=== PATIENT | female | born 1965 | race Caucasian/White ===

== ENCOUNTER → 2017-09-09 08:22 | Outpatient (CLI) | payer OTHER, SELFPAY ==
--- NOTE | 2017-09-09 08:27 | HPBI_ITS ---
MAMMOGRAPHY - BILATERAL SCREENING REASON FOR EXAM: Female, 51 years old. Routine annual screening examination. PERTINENT HISTORY: Grandmother with breast cancer. Aunt with breast cancer. TECHNIQUE: Digital bilateral breast kaden (3D mammographic acquisition) in the CC and MLO projections. 2-D mediolateral oblique (MLO) and craniocaudad (CC) views of both breasts were obtained. CAD: Full Field Digital Mammography with Computer Added Detection was performed. COMPARISON: Comparison is made with prior outside examination dated August 18, 2016 and July 23, 2014. FINDINGS: Breast Composition: The breasts are heterogeneously dense, which may obscure small masses. There are no dominant masses or suspicious calcifications. A tissue clip marker is seen in the upper lateral portion of the left breast. A linear well-defined nodular density is seen. This is unchanged. No other significant abnormalities are identified. There has been no significant change since the prior study. HPBI/SCREENING MAMM (CAD), BILAT IMPRESSION: Stable bilateral screening mammogram. Yearly follow-up mammogram recommended. (A) ASSESSMENT CATEGORY: BIRADS Category 2: Benign. A letter regarding these results will be sent to the patient by the facility within 30 days. Approximately 10% of breast cancers are not detected by mammography. A normal mammogram should not delay biopsy of a clinically suspicious abnormality. [id number] Electronically Signed: Ozzy Mchugh MD at 13:05 EST Tel [phone], Service support ,
== END ==
PROVIDERS: Family Provider Internal Medicine; PCP Internal Medicine; Visit Provider Nurse Practitioner Women's Health
DX: Z12.31 Encounter for screening mammogram for malignant neoplasm of breast (principal)
CPT/HCPCS: 77063; 77067

== ENCOUNTER → 2017-11-09 10:52 | Outpatient (CLI) | payer OTHER, SELFPAY | PROVIDERS: Family Provider Internal Medicine; PCP Internal Medicine; Visit Provider Internal Medicine Cardiovascular Disease | DX: R00.1 Bradycardia, unspecified (principal) | CPT/HCPCS: 93225; 93226 ==

== ENCOUNTER 2017-12-16 12:24 | Emergency (ER) | payer OTHER, SELFPAY ==
[2017-12-16 12:25] VITALS: BP 144/78; PULSE 47; RESP 16; TEMP 36.6; O2SAT 98; BMI 32.1
[2017-12-16 12:38] VITALS: BP 126/76; PULSE 57; RESP 18; O2SAT 99
--- NOTE | 2017-12-16 13:01 | CT_ITS ---
STUDY: CT BRAIN WITHOUT CONTRAST REASON FOR EXAM: Female, 52 years old. Lightheadedness. Dizziness. RADIATION DOSAGE (If Supplied By Facility): CTDIvol = ( 60.81 ) mGy, DLP = ( 1044.28 ) mGycm TECHNIQUE: Transaxial CT imaging of the brain was performed without administration of intravenous contrast material. Individualized dose optimization techniques were used for this CT. COMPARISON: Comparison is made with prior study dated September 02, 2012. FINDINGS: Normal soft tissue structures. Normal calvarium. Normal size ventricles and extra-axial spaces for the patient's age. Normal white matter tracts of the cerebral hemispheres. Normal basal ganglia and thalami. Normal brainstem. Normal cerebellum. There is no intracranial hemorrhage. There are no findings of an acute ischemic infarction. Normal visualized paranasal sinuses. CT/Brain/Head without Contrast IMPRESSION: Normal unenhanced CT scan of the brain. Electronically Signed: Ozzy Mchugh MD at 13:52 EDT Tel [phone], Service support ,
--- NOTE | 2017-12-16 13:01 | EKG12_ITS ---
Test Reason : BRADYCARDIA Blood Pressure : / mmHG Vent. Rate : 048 BPM Atrial Rate : 048 BPM P-R Int : 146 ms QRS Dur : 088 ms QT Int : 436 ms P-R-T Axes : 003 -07 014 degrees QTc Int : 389 ms Sinus bradycardia Nonspecific T wave abnormality Abnormal ECG Confirmed by KARL MORFIN, BENOIT ([id number]), industrial editor JAYSON LI ([id number]) on 12/21/2017 1:40:30 PM Referred By: MARCIA Confirmed By:BENOIT BARAJAS MD
[2017-12-16 13:11] VITALS: BP 103/87; BP 117/65; BP 120/74; PULSE 46; PULSE 50; PULSE 60
[2017-12-16] MEDS: Meclizine HCl 25 MG Tablet PO (13:15)
[2017-12-16] MEDS: 0.9% Normal Saline 1,000 ML 150 ML IV (13:20)
[2017-12-16 13:30] LABS: Absolute Neutrophil Count 2.4 X10^3/uL (2.0-7.7); Basophil# 0.03 X10^3/uL; Basophil% 0.6 % (0-1); Eosinophil# 0.12 X10^3/uL; Eosinophils% 2.4 % (0-5); Hematocrit 37.9 % (37-47); Hemoglobin 12.5 g/dl (12.0-15.0); Lymphocyte % 40.7 % (19-41); Mean Corpuscular Hgb 29.5 pg (27.0-32.0); Mean Corpuscular Volume 89.4 fL (81-99); Mean Platelet Vol. 9.6 fl (6.2-12.0); Monocyte# 0.32 X10^3/uL; Monocyte% 6.5 % (0-10); Neutrophil # 2.44 X10^3/uL (2.7-7.7); Neutrophil % 49.8 % (47-70); Platelet Count 155 K/mm3 (150-450); RBC Distribution Width CV 12.8 % (11.6-14.6); RBC Distribution Width SD 41.6 fl (35.1-43.9); Red Blood Count 4.24 M/mm3 (4.2-5.4); White Blood Count 4.9 K/mm3 (4.4-11.0)
[2017-12-16 13:31] LABS: POSITIVE COUNT NO; POSITIVE DIFFERENTIAL NO; POSITIVE MORPHOLOGY NO
[2017-12-16 13:34] VITALS: BP 115/72; PULSE 46; RESP 16; O2SAT 99
[2017-12-16 13:47] LABS: Anion Gap 7 (5-15); BUN 20 mg/dL (7-18); BUN/Creat Ratio 24.3 RATIO (10-20); Calcium,Total 8.6 mg/dL (8.5-10.1); Chloride 110 mmol/L (98-107); Creatinine, Serum 0.82 mg/dL (0.55-1.02); EST Glomerular Filtration Rate 78 mL/min (>60); Est Glom Filt Rate - Afr Amer 94 mL/min (>60); Glucose 86 mg/dL (74-106); Potassium 4.1 mmol/L (3.5-5.1); Sodium Level 145 mmol/L (136-145)
[2017-12-16 14:00] VITALS: BP 114/65; PULSE 48; RESP 16; O2SAT 99
--- NOTE | 2017-12-16 14:40 | ED.VISSUMM ---
- ER Visit Summary Date of Service: 12/16/17 Chief Complaint: [Lightheadedness] History of Present Illness: The patient is a 52 F [presents to the emergency department complaint of not feeling well that started around 11 AM. 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 Patient states that she has a history of chronic bradycardia and her resting pulse is normally 48 to low 50s. Patient states she got up and started to walk around but that did not make her feel any better. Patient states that her lightheadedness is more pronounced with certain movements of her head such as looking down or looking up and closing her eyes. Patient denies any chest pain or shortness of breath. Patient denies any falls or head injuries. Patient denies recent illness. Patient has had similar episodes like this in the past. Patient denies any hearing loss or ringing in her ears.] Physical Examination: [HEENT-PERRLA, EOMI. Cranial nerves II through XII grossly intact. TMs clear. Mucous membranes moist. No adenopathy. Cardiovascular-regular rate and rhythm without murmur or ectopy Lungs-clear to auscultation, chest wall stable without crepitus or subcu emphysema Abdomen-normoactive bowel sounds, soft, nontender, no rebound or rigidity, no peritoneal signs. Neuro efpx-dopctd-jbyc and heel to cox testing within normal limits, negative Romberg, negative for drift, fundi benign. Patient was Hallpike and I could not reproduce any nystagmus although she was somewhat symptomatic with position changes. Extremities-intact ?4, normal range of motion, normal pulses, atraumatic] Test Results: [EKG obtained on arrival showed a sinus bradycardia with a ventricular rate of 48 bpm with some nonspecific ST changes. CBC with differential showed a white count of 4.9, hemoglobin 12, hematocrit 38, platelets 155. Chemistries were normal. Troponin was less than 0.015. T scan of the brain without contrast showed nothing acute.] Orthostatic vital signs were normal Emergency Department Course and Treatment: [Was treated with Antivert 25 mg p.o.] patient felt improved after treatment and was able to walk to the bathroom and back without difficulty. Treatment Plan: [Patient will be given a prescription for Antivert] Disposition: [Discharged home in stable condition] Impression: [Dizziness-suspect benign positional vertigo] This note was generated with [employer] dictation software. It may contain incorrect words, spelling, and punctuation that were not noted in review of the chart prior to signing ED Disposition - Plan for ED Patient: Chief Complaint: Dizziness Referrals: Lamont Herzog MD [Primary Care Provider] -
--- NOTE | 2017-12-16 14:43 | ED.DCSUM_ITS ---
- ER Visit Summary Date of Service: 12/16/17 Chief Complaint: [Lightheadedness] History of Present Illness: The patient is a 52 F [presents to the emergency department complaint of not feeling well that started around 11 AM. 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 Patient states that she has a history of chronic bradycardia and her resting pulse is normally 48 to low 50s. Patient states she got up and started to walk around but that did not make her feel any better. Patient states that her lightheadedness is more pronounced with certain movements of her head such as looking down or looking up and closing her eyes. Patient denies any chest pain or shortness of breath. Patient denies any falls or head injuries. Patient denies recent illness. Patient has had similar episodes like this in the past. Patient denies any hearing loss or ringing in her ears.] Physical Examination: [HEENT-PERRLA, EOMI. Cranial nerves II through XII grossly intact. TMs clear. Mucous membranes moist. No adenopathy. Cardiovascular-regular rate and rhythm without murmur or ectopy Lungs-clear to auscultation, chest wall stable without crepitus or subcu emphysema Abdomen-normoactive bowel sounds, soft, nontender, no rebound or rigidity, no peritoneal signs. Neuro ncpi-dxnlhd-iqub and heel to cox testing within normal limits, negative Romberg, negative for drift, fundi benign. Patient was Hallpike and I could not reproduce any nystagmus although she was somewhat symptomatic with position changes. Extremities-intact ?4, normal range of motion, normal pulses, atraumatic] Test Results: [EKG obtained on arrival showed a sinus bradycardia with a ventricular rate of 48 bpm with some nonspecific ST changes. CBC with differential showed a white count of 4.9, hemoglobin 12, hematocrit 38, platelets 155. Chemistries were normal. Troponin was less than 0.015. T scan of the brain without contrast showed nothing acute.] Orthostatic vital signs were normal Emergency Department Course and Treatment: [Was treated with Antivert 25 mg p.o. ] patient felt improved after treatment and was able to walk to the bathroom and back without difficulty. Treatment Plan: [Patient will be given a prescription for Antivert] Disposition: [Discharged home in stable condition] Impression: [Dizziness-suspect benign positional vertigo] This note was generated with [employer] dictation software. It may contain incorrect words, spelling, and punctuation that were not noted in review of the chart prior to signing ED Disposition - Plan for ED Patient: Chief Complaint: Dizziness Referrals: Lamont Herzog MD [Primary Care Provider] -
--- NOTE | 2017-12-16 14:44 | ED.DEP ---
ED Disposition - Plan for ED Patient: Chief Complaint: Dizziness Instructions: ED BPV Vertigo, ED Dizziness [facility]O Prescriptions: Meclizine HCl [Antivert] 25 mg PO 4X/DAY PRN PRN #20 tab PRN Reason: Dizziness Referrals: Lamont Herzog MD [Primary Care Provider] - 3-5 Days
[2017-12-16 14:53] VITALS: BP 110/76; PULSE 48; RESP 15; O2SAT 99
--- NOTE | 2017-12-16 14:55 | ED.RN ---
REVIEWED D/C INSTRUCTIONS, FOLLOW UP CARE, PRESCRIPTIONS, AND S/S THAT WOULD WARRANT A RETURN TO THE ED WITH PT. PT VERBALIZED AN UNDERSTANDING AND DENIES FURTHER QUESTIONS FOR THIS RN. PT SKIN P/W/D, RESP EVEN AND UNLABORED, PT A&O X 3, NO DISTRESS NOTED. PT AMBULATED OUT OF ED, GAIT STEADY.
== END 2017-12-16 14:57 | disposition home or self-care (01) ==
PROVIDERS: Emergency Provider Emergency Medicine; Family Provider Internal Medicine; PCP Internal Medicine
DX: R42 Dizziness and giddiness (principal); R00.1 Bradycardia, unspecified; G43.909 Migraine, unspecified, not intractable, without status migrainosus; Z90.710 Acquired absence of both cervix and uterus; Z79.899 Other long term (current) drug therapy
CPT/HCPCS: 70450; 80048; 84484; 85025; 93005; 96360; 96361; 99285; J7030; A4216

== ENCOUNTER → 2017-12-25 07:53 | Outpatient (CLI) | payer OTHER, SELFPAY ==
[2017-12-25 08:15] LABS: Absolute Lymphocyte Count 1.56 X10^3/ul (0.83-4.51); Absolute Neutrophil Count 2.2 X10^3/uL (2.0-7.7); Basophil# 0.03 X10^3/uL; Basophil% 0.7 % (0-1); Eosinophil# 0.13 X10^3/uL; Hematocrit 41.1 % (37-47); Hemoglobin 13.5 g/dl (12.0-15.0); Lymphocyte # 1.56 X10^3/ul (4.0); Lymphocyte % 36.4 % (19-41); Mean Corp Hgb Conc 32.8 g/gl (32-36); Mean Corpuscular Hgb 29.3 pg (27.0-32.0); Mean Corpuscular Volume 89.3 fL (81-99); Mean Platelet Vol. 9.9 fl (6.2-12.0); Monocyte# 0.35 X10^3/uL; Monocyte% 8.2 % (0-10); Neutrophil # 2.22 X10^3/uL (2.7-7.7); Neutrophil % 51.7 % (47-70); Platelet Count 166 K/mm3 (150-450); RBC Distribution Width CV 12.7 % (11.6-14.6); White Blood Count 4.3 K/mm3 (4.4-11.0)
[2017-12-25 08:24] LABS: POSITIVE COUNT NO; POSITIVE DIFFERENTIAL NO; POSITIVE MORPHOLOGY NO
[2017-12-25 08:42] LABS: Anion Gap 7 (5-15); BUN 18 mg/dL (7-18); BUN/Creat Ratio 19.3 RATIO (10-20); Calcium,Total 8.8 mg/dL (8.5-10.1); Chloride 111 mmol/L (98-107); Cholesterol 198 mg/dL (200); Creatinine, Serum 0.93 mg/dL (0.55-1.02); EST Glomerular Filtration Rate 67 mL/min (>60); Est Glom Filt Rate - Afr Amer 82 mL/min (>60); Glucose 91 mg/dL (74-106); High Density Lipoprotein 64 mg/dL; Sodium Level 143 mmol/L (136-145); Triglycerides 83 mg/dL; Very Low Density Lipoprotein 17 mg/dL (5-40)
== END ==
PROVIDERS: Family Provider Internal Medicine; PCP Internal Medicine; Visit Provider Internal Medicine
DX: I49.3 Ventricular premature depolarization (principal); R00.1 Bradycardia, unspecified
CPT/HCPCS: 36415; 80048; 80061; 85025

== ENCOUNTER 2018-02-08 06:22 | Day surgery (SDC) | payer OTHER, SELFPAY ==
[2018-02-08 07:03] VITALS: BP 137/78; PULSE 51; RESP 16; TEMP 36.8; O2SAT 99; BMI 31.9
[2018-02-08 07:56] VITALS: BP 108/61; BP 137/78; PULSE 55; RESP 16; TEMP 36.2; O2SAT 98
--- NOTE | 2018-02-08 07:56 | PCM.OPRPT ---
Problem List (1) Screening for intestinal cancer Status: Acute Report of Operation Date of Procedure: 02/08/18 Pre-Operative Diagnosis: Screening for intestinal cancer Post-Operative Diagnosis: Elongated colon otherwise normal examination Surgery/Procedure Performed:: Colonoscopy Description of Surgical Findings:: Timeout informed consent was obtained. 52-year-old female was taken to the endoscopy suite. She was placed in left lateral decubitus position. Because of previous history of bradycardia she underwent monitored anesthesia care. Digital rectal exam performed. Normal anal tone. No mass lesions. Flexible colonoscope inserted in the rectum advanced through a tortuous sigmoid. The scope was carefully and tediously advanced past the splenic flexure and through the transverse colon. With some transabdominal pressure the scope was advanced to the cecum. The cecum ileocecal valve area was nicely achieved. Bowel prep was good. The scope was carefully withdrawn from the ascending transverse descending and sigmoid colon. No abnormalities were encountered. The scope was retroflexed within the rectum. Mild hemorrhoidal changes noted. Excess fluid and air was aspirated free the procedure was completed with the patient tolerating it well. Impression Elongated colon but otherwise normal colonoscopy Next screening colonoscopy recommended in 10 years. This is the patient's first examination. Procedure was initiated at 0740. The cecum was reached at 0748. Procedure was completed at 0754. Cc: Dr. Mino Torres M.D., F.A.C.S. Type of Anesthesia:: MAC Anesthesiologist: Melony Clark
[2018-02-08 08:00] VITALS: BP 115/87; BP 137/78; PULSE 58; RESP 18; O2SAT 99
[2018-02-08 08:05] VITALS: BP 106/57; BP 137/78; PULSE 55; RESP 18; O2SAT 97
[2018-02-08 08:12] VITALS: BP 105/74; BP 137/78; PULSE 51; RESP 18; TEMP 36.3; O2SAT 98
[2018-02-08 08:21] VITALS: BP 137/78
== END 2018-02-08 08:48 | disposition home or self-care (01) ==
LOC: EN 06:24 → AC 06:24
PROVIDERS: Family Provider Internal Medicine; PCP Internal Medicine; Visit Provider Surgery
PROC: 0DJD8ZZ Inspection of Lower Intestinal Tract, Via Natural or Artificial Opening Endoscopic (ICD-10-PCS; CPT 45378; principal; 2018-02-08 07:25)
DX: Z12.11 Encounter for screening for malignant neoplasm of colon (principal); Q43.8 Other specified congenital malformations of intestine; F41.9 Anxiety disorder, unspecified; F32.9 Major depressive disorder, single episode, unspecified; Z79.899 Other long term (current) drug therapy; R00.0 Tachycardia, unspecified; K21.9 Gastro-esophageal reflux disease without esophagitis; R00.1 Bradycardia, unspecified
CPT/HCPCS: 00812; 45378; J7120

== ENCOUNTER → 2018-11-10 16:27 | Outpatient (CLI) | payer OTHER, SELFPAY ==
[2018-10-04 13:06] VITALS: BMI 32.1
[2018-10-13 07:44] VITALS: BMI 32.1
--- NOTE | 2018-11-10 16:35 | BI_ITS ---
MAMMOGRAPHY - BILATERAL SCREENING REASON FOR EXAM: Female, 53 years old. Routine annual screening examination. PERTINENT HISTORY: Grandmother with breast cancer. Aunt with breast cancer. Prior left ultrasound guided biopsy. TECHNIQUE: Digital bilateral breast jayne (3D mammographic acquisition) in the CC and MLO projections. 2-D mediolateral oblique (MLO) and craniocaudad (CC) views of both breasts were obtained. CAD: Full Field Digital Mammography with Computer Added Detection was performed. COMPARISON: Comparison is made with prior study dated September 09, 2017 and July 24, 2015. FINDINGS: Breast Composition: The breasts are heterogeneously dense, which may obscure small masses. There are no dominant masses or suspicious calcifications. A tissue clip marker is once again seen in the linear density in the upper lateral aspect of the left breast. Stable appearance of the bilateral axillary lymph nodes. No other significant abnormalities are identified. There has been no significant change since the prior study. BI/SCREEN MAMM (CAD) W/JAYNE BILAT IMPRESSION: Stable bilateral screening mammogram. Yearly follow-up mammogram recommended. (A) ASSESSMENT CATEGORY: BIRADS Category 2: Benign. A letter regarding these results will be sent to the patient by the facility within 30 days. Approximately 10% of breast cancers are not detected by mammography. A normal mammogram should not delay biopsy of a clinically suspicious abnormality. [id number] Electronically Signed: Ozzy Mchugh, at 8:27 EDT , Service support ,
== END ==
PROVIDERS: Family Provider Internal Medicine; PCP Internal Medicine; Referring Provider Nurse Practitioner Women's Health; Visit Provider Nurse Practitioner Women's Health
DX: Z12.31 Encounter for screening mammogram for malignant neoplasm of breast (principal)
CPT/HCPCS: 77063; 77067

== ENCOUNTER → 2019-01-18 | Outpatient (CLI) | payer OTHER, SELFPAY ==
[2019-01-18 08:13] VITALS: BMI 32.1
--- NOTE | 2019-01-18 08:14 | RAD_ITS ---
STUDY: X-RAY - RIGHT KNEE REASON FOR EXAM: Female, 53 years old. Pain. TECHNIQUE: 5 view(s) of the knee. COMPARISON: None. FINDINGS: There is no evidence of fracture or dislocation. There is a small suprapatellar joint effusion. There are no significant degenerative changes. There are no radiodense foreign bodies. RAD/Knee 4 or More Views IMPRESSION: No fracture or dislocation of the right knee. Small joint effusion. Electronically Signed: Brian Whitaker, at 17:10 EDT Tel , Service support ,
== END | disposition home or self-care (01) ==
LOC: HPRAD 08:13
PROVIDERS: Family Provider Internal Medicine; PCP Internal Medicine; Referring Provider Orthopaedic Surgery; Visit Provider Orthopaedic Surgery
DX: M25.561 Pain in right knee (principal)
CPT/HCPCS: 73564

== ENCOUNTER → 2019-01-31 | Outpatient (CLI) | payer OTHER, SELFPAY ==
[2019-01-18 08:13] VITALS: BMI 32.1
--- NOTE | 2019-01-31 07:13 | MRI_ITS ---
STUDY: MRI RIGHT KNEE REASON FOR EXAM: Female, 53 years old. Right knee injury and pain for 3 weeks TECHNIQUE: Standardized fat and water weighted pulse sequences were obtained in all 3 orthogonal planes. COMPARISON: Right knee x-ray 01/18/2019. FINDINGS: Normal medial meniscus. There is diffuse, full thickness articular cartilage loss of the medial femorotibial compartment. Normal medial femoral condyle and tibial plateau. Normal medial collateral ligamentous complex (MCL). Normal distal semimembranosus, gracilis and semitendinosus tendons. Normal lateral meniscus. Normal hyaline cartilage of the lateral femorotibial compartment. Normal lateral femoral condyle and tibial plateau. Normal proximal tibiofibular articulation. Normal lateral collateral (fibular) ligament. Normal popliteus tendon. Normal biceps femoris tendon. There is mild edema and thickening of the semimembranosus tendon. Normal anterior cruciate ligament (ACL). Normal posterior cruciate ligament (PCL). Normal congruent patellofemoral articulation. There is diffuse, less than 50% thickness articular cartilage loss of the patellofemoral compartment. Normal medial and lateral patellar retinaculum. Normal quadriceps tendon. Normal patellar tendon. Normal Hoffa's fat pad. There is a moderate volume joint effusion. There is a Carrera's cyst. There is extravasated fluid consistent with a leakage. There is mild subcutaneous edema along the anterior knee soft tissues. The otherwise visualized osseous structures are unremarkable. 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 Moderate joint effusion. Carrera's cyst with extravasated fluid consistent with the leakage. Mild semimembranosus tendon strain. Electronically Signed: Eliseo Grove, at 11:47 EDT Tel , Service support ,
== END | disposition home or self-care (01) ==
LOC: MRI 07:12
PROVIDERS: Family Provider Internal Medicine; PCP Internal Medicine; Referring Provider Orthopaedic Surgery; Visit Provider Orthopaedic Surgery
DX: S83.91XA Sprain of unspecified site of right knee, initial encounter (principal); M25.561 Pain in right knee
CPT/HCPCS: 73721

== ENCOUNTER → 2019-04-17 14:30 | Outpatient (CLI) | payer OTHER, SELFPAY ==
[2019-04-17 07:58] VITALS: BMI 32.1
--- NOTE | 2019-04-17 14:31 | RAD_ITS ---
STUDY: X-RAY - LEFT KNEE REASON FOR EXAM: Left knee pain, injury. TECHNIQUE: 4 view(s) of the knee. COMPARISON: Radiographs 04/17/2016. FINDINGS: Normal visualized distal femur. Normal visualized proximal tibia and fibula. Normal proximal tibiofibular articulation. Normal medial femorotibial compartment. Normal lateral femorotibial compartment. Normal patellofemoral articulation. The soft tissue structures are unremarkable. RAD/Knee 4 or More Views IMPRESSION: Normal x-ray examination of the left knee. Electronically Signed: Joshua Flores MD at 16:01 EDT Tel , Service support ,
== END ==
PROVIDERS: Family Provider Internal Medicine; PCP Internal Medicine; Referring Provider Orthopaedic Surgery; Visit Provider Orthopaedic Surgery
DX: M25.562 Pain in left knee (principal)
CPT/HCPCS: 73564

== ENCOUNTER 2019-04-25 16:30 | Outpatient (RCR) | payer SELFPAY ==
[2019-02-20 08:08] VITALS: BMI 32.1
--- NOTE | 2019-10-12 13:37 | HP.PT.NRP ---
HP - Discharge Summary (1) - Patient Information JESSICA VENTURA was seen in my office for initial evaluation on . The following Plan of Care was established for this patient: This patient was last seen in our office . Pertinent comments regarding their Physical therapy will appear below: Dry Needle d/c At this point I will be discontinuing this patient from physical therapy. I would be happy to see this patient again in the future if found appropriate by the physician. Thank you! TAWANA KeysT
== END 2019-04-25 19:00 | disposition home or self-care (01) ==
LOC: PT 16:30
PROVIDERS: Family Provider Internal Medicine; PCP Internal Medicine
DX: R69 Illness, unspecified (principal)

== ENCOUNTER → 2019-04-27 09:33 | Outpatient (CLI) | payer OTHER, SELFPAY ==
[2019-04-17 07:58] VITALS: BMI 32.1
--- NOTE | 2019-04-27 09:37 | MRI_ITS ---
STUDY: MRI LEFT KNEE REASON FOR EXAM: Left mechanical knee pain status post fall.. TECHNIQUE: Standardized fat and water weighted pulse sequences were obtained in all 3 orthogonal planes. COMPARISON: Radiographs 04/17/2019 and MRI images 03/13/2014. FINDINGS: Normal medial meniscus. There is interval development of a small partial thickness focal chondral defect of the posterior medial aspect of the medial femoral condyle (T2 sagittal image 9) measuring 0.5 cm in AP dimension. There are very small marginal osteophytes of the medial femoral condyle. Normal medial femoral condyle and tibial plateau. Normal medial collateral ligamentous complex (MCL). Normal distal semimembranosus, gracilis and semitendinosus tendons. Normal lateral meniscus. Normal hyaline cartilage of the lateral femorotibial compartment. Normal lateral femoral condyle and tibial plateau. Normal proximal tibiofibular articulation. Normal lateral collateral (fibular) ligament. Normal popliteus tendon. Normal biceps femoris tendon. Normal anterior cruciate ligament (ACL). Normal posterior cruciate ligament (PCL). Normal congruent patellofemoral articulation. There is low to intermediate grade chondromalacia patellae (T2 sagittal image 13), similar to the prior study. Normal medial and lateral patellar retinaculum. Normal visualized quadriceps tendon. Normal patellar tendon. Normal Hoffa's fat pad. There is a minimal volume of fluid in the joint. There is edema in the anterior subcutis adipose space. The otherwise visualized osseous structures are unremarkable. MRI/Lower Ext Joint Only (Routine) IMPRESSION: Small focal chondral defect of the medial femoral condyle. Chondromalacia patellae. Edema in the anterior subcutis adipose space. No demonstrated meniscal or ligamentous injury. Electronically Signed: Joshua Flores MD at 10:55 EDT Tel , Service support ,
== END ==
PROVIDERS: Family Provider Internal Medicine; PCP Internal Medicine; Referring Provider Orthopaedic Surgery; Visit Provider Orthopaedic Surgery
DX: M25.562 Pain in left knee (principal)
CPT/HCPCS: 73721

== ENCOUNTER → 2019-07-25 14:13 | Outpatient (CLI) | payer OTHER, SELFPAY ==
[2019-07-25 16:30] VITALS: BMI 32.1
[2019-07-26 14:25] LABS: Bacteria 0 SEEN /hpf (None Seen); Mucous, Urine 0 SEEN /hpf (<or=2+); Red Blood Cells-Urine 0 SEEN /hpf (0-5); White Blood Cells 0 SEEN /hpf (0-5)
[2019-07-26 14:48] LABS: Color, Urine Yellow (Yellow); Glucose, Dipstick Normal (Normal); Ketone-Dipstick Negative (Negative); Leukocyte Esterase-Dipstick Negative /ul (Negative); Nitrite-Dipstick Negative (Negative); Occult Blood-Urine Negative /ul (Negative); Protein-Dipstick Negative (Negative); Urine Bilirubin Dipstick Negative (Negative); Urine Clarity Clear (Clear); Urine Urobilinogen Normal (Normal); Urine pH 6.5 (5.0 - 8.0)
[2019-07-26 15:30] LABS: Squamous Epithelial Cells - UA 0-5 SEEN /hpf (5-10)
== END ==
PROVIDERS: Family Provider Internal Medicine; PCP Internal Medicine; Referring Provider Physician Assistant Surgical; Visit Provider Physician Assistant Surgical
DX: N30.01 Acute cystitis with hematuria (principal)
CPT/HCPCS: 81001; 87086; 87088

== ENCOUNTER → 2019-11-20 12:54 | Outpatient (CLI) | payer OTHER, SELFPAY ==
[2019-10-18 15:49] VITALS: BMI 32.1
--- NOTE | 2019-11-20 12:56 | BI_ITS ---
MAMMOGRAPHY - BILATERAL SCREENING REASON FOR EXAM: Female, 54 years old. Routine annual screening examination. PERTINENT HISTORY: Grandmother with breast cancer. Aunt with breast cancer. TECHNIQUE: Digital bilateral breast jayne (3D mammographic acquisition) in the CC and MLO projections. 2-D mediolateral oblique (MLO) and craniocaudad (CC) views of both breasts were obtained. CAD: Full Field Digital Mammography with Computer Added Detection was performed. COMPARISON: Comparison is made with prior examination dated November 10, 2018 and September 09, 2017. FINDINGS: Breast Composition: The breasts are heterogeneously dense, which may obscure small masses. There are no dominant masses or suspicious calcifications. A tissue clip marker is seen within the small nodule in the upper lateral aspect of the left breast. Stable benign-appearing bilateral axillary lymph nodes. No other significant abnormalities are identified. There has been no significant change since the prior study. BI/SCREEN MAMM (CAD) W/JAYNE BILAT IMPRESSION: Stable bilateral screening mammogram. Yearly follow-up mammogram recommended. (A) ASSESSMENT CATEGORY: BIRADS Category 2: Benign. A letter regarding these results will be sent to the patient by the facility within 30 days. Approximately 10% of breast cancers are not detected by mammography. A normal mammogram should not delay biopsy of a clinically suspicious abnormality. [id number] Electronically Signed: Ozzy Mchugh, at 15:10 EDT , Service support ,
== END ==
PROVIDERS: PCP Internal Medicine; Referring Provider Nurse Practitioner Women's Health; Visit Provider Nurse Practitioner Women's Health
DX: Z12.31 Encounter for screening mammogram for malignant neoplasm of breast (principal)
CPT/HCPCS: 77063; 77067

== ENCOUNTER 2020-02-18 19:06 | Emergency (ER) | payer OTHER, SELFPAY ==
[2020-02-17 08:30] VITALS: BMI 32.1
[2020-02-18 19:08] VITALS: BP 130/89; PULSE 53; RESP 17; TEMP 37.3; O2SAT 99; BMI 35.3
[2020-02-18 19:43] LABS: Absolute Lymphocyte Count 2.14 X10^3/uL (0.83-4.51); Absolute Neutrophil Count 4.2 X10^3/uL (2.0-7.7); Basophil# 0.06 X10^3/uL; Basophil% 0.8 % (0-1); Eosinophil# 0.49 X10^3/uL; Eosinophils% 6.4 % (0-5); Hematocrit 41.1 % (37-47); Hemoglobin 13.4 g/dL (12.0-15.0); Lymphocyte # 2.14 X10^3/ul (4.0); Lymphocyte % 27.9 % (19-41); Mean Corp Hgb Conc 32.6 g/dL (32-36); Mean Corpuscular Hgb 29.5 pg (27.0-32.0); Mean Corpuscular Volume 90.5 fL (81-99); Mean Platelet Vol. 9.6 fl (6.2-12.0); Monocyte% 9.1 % (0-10); NRBC Flagged by Analyzer 0 % (0-5); Neutrophil # 4.22 X10^3/uL (2.7-7.7); Platelet Count 227 K/mm3 (150-450); RBC Distribution Width CV 12.2 % (11.6-14.6); RBC Distribution Width SD 40.1 fl (35.1-43.9); Red Blood Count 4.54 M/mm3 (4.2-5.4); White Blood Count 7.7 K/mm3 (4.4-11.0)
[2020-02-18] MEDS: Morphine 4 MG/ML Syringe IV ×2 (19:43→22:03)
[2020-02-18] MEDS: 0.9% Normal Saline 1,000 ML 1000 ML IV (19:43)
[2020-02-18] MEDS: Ondansetron 4 MG/2 ML Vial IV (19:43)
[2020-02-18 19:55] LABS: Anion Gap 5 (5-15); BUN 21 mg/dL (7-18); BUN/Creat Ratio 26.2 RATIO (10-20); Calcium,Total 8.7 mg/dL (8.5-10.1); Chloride 111 mmol/L (98-107); EST Glomerular Filtration Rate 80 mL/min (>60); Est Glom Filt Rate - Afr Amer 97 mL/min (>60); Estimated Creatinine Clearance 82.98 ml/min; Glucose 94 mg/dL (74-106); Potassium 3.7 mmol/L (3.5-5.1); Sodium Level 142 mmol/L (136-145)
[2020-02-18 20:03] LABS: Lactic Acid 0.6 mmol/L (0.4-1.9)
--- NOTE | 2020-02-18 20:42 | CT_ITS ---
STUDY: CT CHEST WITHOUT CONTRAST REASON FOR EXAM: Female, 54 years old. INFECTION OF SKIN CA REMOVAL SITE. BASAL CELL RADIATION DOSAGE (If Supplied By Facility): CTDIvol = ( 14.44 ) mGy, DLP = ( 526.76 ) mGycm TECHNIQUE: Transaxial imaging was performed without the administration of intravenous contrast material. Multiplanar coronal and sagittal images were reformatted. Individualized dose optimization techniques were used for this CT. COMPARISON: Previous chest x-rays FINDINGS: Lung windows show the lungs to be normally expanded. There is no organized infiltrate, ground glass opacifications, suspicious noncalcified mass or nodule The soft tissue windows show a normal-appearing thyroid gland with a calcified nodule. Just inferior to the thyroid and anterior to the clavicles is skin thickening and induration of the subcutaneous fat consistent with an inflammatory process. There also appears to be a few subcentimeter subcutaneous lymph nodes where there has been recent biopsy/surgery No pleural or pericardial effusions. Normal osseous structures. There is no demonstrated abnormality of the visualized upper abdomen. CT/Chest without Contrast IMPRESSION: Anterior to the clavicle heads is skin thickening, induration of the subcutaneous fat, and subcentimeter subcutaneous lymph nodes. This is at a site of recent surgery/biopsy. This is a focal area of inflammation. No organized abscess. No suspicious noncalcified mass or nodule. No organized infiltrate or effusion Degenerative bony changes Electronically Signed: Delroy Tan MD at 21:29 EDT , Service support ,
--- NOTE | 2020-02-18 21:15 | ED.DCSUM_ITS ---
- ER Visit Summary Date of Service: 02/18/20 Chief Complaint: Wound infection History of Present Illness: The patient is a 54 F who had a basal cell carcinoma removed [address] Antonio at [facility] dermatology. She reports that 3 days ago the wound began getting red. She was seen at an urgent care yesterday and started on clindamycin. She has taken 5 doses of 300 mg with no improvement. She reports she has a sharp pain is 8 out of 10 at worst and 6 out of 10 currently. Is worsened by moving or touching it. Is relieved by ibuprofen. Patient does report chills. She denies fever. No nausea, vomiting, or other constitutional symptoms. Physical Examination: Vitals: Stable. Afebrile. General: Well-nourished and well-developed. Head: Normocephalic atraumatic. Neck: Supple, no lymphadenopathy. No JVD. Nontender. Cardiovascular: Regular rate and rhythm. No murmurs. Respiratory: No respiratory distress. Clear to auscultation bilaterally. Abdominal: Soft, nontender, nondistended, normal bowel sounds. No guarding, rebound, or peritoneal signs. Back: Nontender. Extremities: Nontender, no edema. Skin: Over the upper portion of her sternum there is a 6 cm incision with stitches in place. There is approximately 3 cm of surrounding induration and erythema. It is moderately tender to palpation. I do not appreciate any fluctuance. Neurologic: Alert and oriented ?3. Cranial nerves II through XII are intact. Normal strength and sensation. Psych: Normal affect. Test Results: CBC shows eosinophils of 6. Chem-7 shows a chloride of 111 and BUN of 21. Lactic acid is 0.6. Clinical Impression(s) from Imaging Studies Chest CT 02/18/20 20:42 IMPRESSION: Anterior to the clavicle heads is skin thickening, induration of the subcutaneous fat, and subcentimeter subcutaneous lymph nodes. This is at a site of recent surgery/biopsy. This is a focal area of inflammation. No organized abscess. No suspicious noncalcified mass or nodule. No organized infiltrate or effusion Degenerative bony changes Electronically Signed: Delroy Tan MD at 21:29 EDT , Service support , Emergency Department Course and Treatment: Patient had an IV placed. She given morphine, Zofran, and vancomycin IV. I had a prolonged discussion with her about possible treatment options. She is hesitant to have the stitches removed if not necessary due to cosmetic concerns. I did leave a message at [facility] dermatology and have not received a call. Given the results of the CT scan I do not feel that opening this tonight will necessarily hasten her recovery. Patient would like to go home. Treatment Plan: Patient will be discharged with Percocet for pain and Bactroban ointment. Instructed to follow-up her reconditioning associate tomorrow for repeat exam. Return to the emergency department for any worsening symptoms. Disposition: To home in improved and stable condition. Impression: 1. 6 days status post basal cell carcinoma removal with wound infection. This note was generated with [employer] dictation software. It may contain incorrect words, spelling, and punctuation that were not noted in review of the chart prior to signing ED Disposition - Plan for ED Patient: Instructions: ED Wound Infection after surgery Prescriptions: Mupirocin [Bactroban] 1 applic TOPICAL TID #1 tube Oxycodone HCl/Acetaminophen [Percocet 5/325] 1 tablet PO Q6H PRN PRN 5 Days #20 tablet PRN Reason: Pain Score 6-10/10 Referrals: Doctor,Your [STAFF PHYSICIAN] - 1 Day for another exam
[2020-02-18 22:06] VITALS: BP 118/69; PULSE 57; RESP 16; O2SAT 97
== END 2020-02-18 23:01 | disposition home or self-care (01) ==
LOC: ED 19:59
PROVIDERS: Emergency Provider Emergency Medicine; PCP Internal Medicine
DX: T81.41XA Infection following a procedure, superficial incisional surgical site, initial encounter (principal); Z85.828 Personal history of other malignant neoplasm of skin
CPT/HCPCS: 36415; 71250; 80048; 83605; 85025; 87040; 96365; 96366; 96375; 96376; 99282; J7030; J7040; A4216; J2405

== ENCOUNTER → 2020-02-22 16:06 | Outpatient (CLI) | payer OTHER, SELFPAY ==
[2020-02-22 15:24] VITALS: BMI 35.3
[2020-02-22 17:57] LABS: AST(SGOT) 12 U/L (15-37); Alanine Aminotransfer ALT/SGPT 16 U/L (13-56); Albumin, Serum 3.6 g/dL (3.2-5.0); Alkaline Phosphatase 92 U/L (45-117); Bilirubin, Direct 0.09 mg/dL (0.00-0.30); Cholesterol 190 mg/dL (200); Globulin 4.1 g/dL (2.2-4.2); High Density Lipoprotein 44 mg/dL; Protein, Total 7.7 g/dL (6.4-8.2); Triglycerides 141 mg/dL; Very Low Density Lipoprotein 28 mg/dL (5-40)
[2020-02-22 19:05] LABS: Hemoglobin A1c 5.3 % (3.8-5.6)
== END ==
PROVIDERS: PCP Internal Medicine; Referring Provider Internal Medicine; Visit Provider Internal Medicine
DX: E66.9 Obesity, unspecified (principal)
CPT/HCPCS: 36415; 80061; 80076; 83036

== ENCOUNTER 2020-04-01 16:21 | Outpatient (RCR) | payer OTHER, SELFPAY ==
[2020-02-22 15:24] VITALS: BMI 35.3
--- NOTE | 2020-05-06 15:57 | HP.PT.NRP ---
JESSICA VENTURA was seen in my office for initial evaluation on . The following Plan of Care was established for this patient: This patient was last seen in our office . Pertinent comments regarding their Physical therapy will appear below: Dry Needle- d/c At this point I will be discontinuing this patient from physical therapy. I would be happy to see this patient again in the future if found appropriate by the physician. Thank you! TAWANA KeysT
== END 2020-04-01 19:00 | disposition home or self-care (01) ==
LOC: PT 16:21
PROVIDERS: PCP Internal Medicine
DX: R69 Illness, unspecified (principal)

== ENCOUNTER 2020-04-08 16:30 | Outpatient (RCR) | payer OTHER, SELFPAY ==
[2020-02-22 15:24] VITALS: BMI 35.3
== END 2020-04-08 23:59 ==
LOC: NS 16:30
PROVIDERS: PCP Internal Medicine; Visit Provider Internal Medicine
DX: Z71.3 Dietary counseling and surveillance (principal); E66.9 Obesity, unspecified; Z68.34 Body mass index [BMI] 34.0-34.9, adult
CPT/HCPCS: 97802; 97803

== ENCOUNTER 2020-04-22 14:24 | Outpatient (RCR) | payer OTHER, SELFPAY ==
[2020-02-22 15:24] VITALS: BMI 35.3
== END 2020-05-08 23:59 ==
LOC: NS 14:24
PROVIDERS: PCP Internal Medicine; Visit Provider Internal Medicine
DX: Z71.3 Dietary counseling and surveillance (principal); E66.9 Obesity, unspecified; Z68.34 Body mass index [BMI] 34.0-34.9, adult
CPT/HCPCS: 97803

== ENCOUNTER 2020-06-06 17:00 | Outpatient (RCR) | payer OTHER, SELFPAY ==
[2020-02-22 15:24] VITALS: BMI 35.3
== END 2020-06-08 23:59 ==
LOC: NS 17:00
PROVIDERS: PCP Internal Medicine; Visit Provider Internal Medicine
DX: Z71.3 Dietary counseling and surveillance (principal); E66.9 Obesity, unspecified; Z68.34 Body mass index [BMI] 34.0-34.9, adult
CPT/HCPCS: 97803

== ENCOUNTER → 2020-06-27 17:37 | Outpatient (CLI) | payer OTHER, SELFPAY ==
[2020-02-22 15:24] VITALS: BMI 35.3
== END ==
PROVIDERS: PCP Internal Medicine; Referring Provider Internal Medicine; Visit Provider Internal Medicine
DX: R05 Cough (principal); R09.81 Nasal congestion; Z20.828 Contact with and (suspected) exposure to other viral communicable diseases
CPT/HCPCS: 87635; C9803; U0003

== ENCOUNTER → 2020-08-26 09:50 | Outpatient (CLI) | payer OTHER, SELFPAY ==
[2020-02-22 15:24] VITALS: BMI 35.3
--- NOTE | 2020-08-26 09:54 | US_ITS ---
STUDY: THYROID ULTRASOUND REASON FOR EXAM: Female, 54 years old. Nodule seen on CT of the chest, 02/18/2020. TECHNIQUE: Ultrasound evaluation of the thyroid was performed with real-time and static ingram-scale imaging. COMPARISON: CT of the chest, 02/18/2020 FINDINGS: RIGHT LOBE: The right lobe of the thyroid gland measures 5.3 x 1.8 x 1.6 cm. There is a homogeneous echotexture. There are no demonstrated solid, cystic or complex lesions. Internal vascularity on DOPPLER imaging. LEFT LOBE: The left lobe of the thyroid gland measures 5.6 x 2.2 x 1 point cm. There is a homogeneous echotexture. The mid to lower pole there is a mixed density predominantly solid isoechoic nodule measuring 1.6 x 1.0 x 0.8 cm. This is wider than it is long and is well developed margins. ISTHMUS: The isthmus measures 0.5 cm. There is a 1.2 x 0.6 x 0 7 cm benign appearing left cervical lymph node. US/Thyroid IMPRESSION: Single nodule in the left thyroid. This nodule is mildly suspicious. Recommend follow-up thyroid ultrasounds at 1, 3 and 5 years. Electronically Signed: Rocco Chapman DO at 20:42 EST Tel [phone], Service support ,
== END ==
PROVIDERS: PCP Internal Medicine; Referring Provider Internal Medicine; Visit Provider Internal Medicine
DX: E04.1 Nontoxic single thyroid nodule (principal)
CPT/HCPCS: 76536

== ENCOUNTER → 2020-11-25 12:04 | Outpatient (CLI) | payer OTHER, SELFPAY ==
[2020-10-24 11:02] VITALS: BMI 36.1
[2020-11-25 09:14] VITALS: BMI 36.0
--- NOTE | 2020-11-25 12:05 | BI_ITS ---
MAMMOGRAPHY - BILATERAL SCREENING REASON FOR EXAM: Female, 55 years old. Routine annual screening examination. PERTINENT HISTORY: Grandmother with breast cancer. Aunt with breast cancer. History of prior left ultrasound-guided breast biopsy. TECHNIQUE: Digital bilateral breast jayne (3D mammographic acquisition) in the CC and MLO projections. 2-D mediolateral oblique (MLO) and craniocaudad (CC) views of both breasts were obtained. CAD: Full Field Digital Mammography with Computer Added Detection was performed. COMPARISON: Comparison is made with prior study dated 11/20/2019 and 11/10/2018. FINDINGS: Breast Composition: The breasts are heterogeneously dense, which may obscure small masses. There are no dominant masses or suspicious calcifications. Stable tissue marker in the small nodule in the axillary region of the left breast. Stable benign-appearing bilateral axillary nodes. No other significant abnormalities are identified. There has been no significant change since the prior study. BI/SCRN MAMM (CAD)W/JAYNE BILAT IMPRESSION: Stable bilateral screening mammogram. Yearly follow-up mammogram recommended. (A) ASSESSMENT CATEGORY: BIRADS Category 2: Benign. A letter regarding these results will be sent to the patient by the facility within 30 days. Approximately 10% of breast cancers are not detected by mammography. A normal mammogram should not delay biopsy of a clinically suspicious abnormality. [id number] Electronically Signed: Ozzy Mchugh MD at 13:10 EDT , Service support ,
== END ==
PROVIDERS: PCP Internal Medicine; Referring Provider Obstetrics & Gynecology; Visit Provider Obstetrics & Gynecology
DX: Z12.31 Encounter for screening mammogram for malignant neoplasm of breast (principal)
CPT/HCPCS: 77063; 77067

== ENCOUNTER → 2021-02-13 11:44 | Outpatient (CLI) | payer OTHER, SELFPAY ==
[2021-02-13 11:02] VITALS: BMI 36.6
[2021-02-13 15:03] LABS: Absolute Lymphocyte Count 1.69 X10^3/uL (0.83-4.51); Absolute Neutrophil Count 2.9 X10^3/uL (2.0-7.7); Basophil# 0.07 X10^3/uL; Basophil% 1.3 % (0-1); Eosinophil# 0.22 X10^3/uL; Eosinophils% 4.1 % (0-5); Hematocrit 41.9 % (37-47); Hemoglobin 13.3 g/dL (12.0-15.0); Lymphocyte # 1.69 X10^3/ul (0.83-4.51); Lymphocyte % 31.8 % (19-41); Mean Corp Hgb Conc 31.7 g/dL (32-36); Mean Corpuscular Hgb 29.2 pg (27.0-32.0); Mean Corpuscular Volume 92.1 fL (81-99); Mean Platelet Vol. 10.7 fl (6.2-12.0); Monocyte# 0.43 X10^3/uL; Monocyte% 8.1 % (0-10); NRBC Flagged by Analyzer 0 % (0-5); Neutrophil % 54.5 % (47-70); Platelet Count 195 K/mm3 (150-450); RBC Distribution Width CV 12.6 % (11.6-14.6); RBC Distribution Width SD 42.5 fl (35.1-43.9); Red Blood Count 4.55 M/mm3 (4.2-5.4); White Blood Count 5.3 K/mm3 (4.4-11.0)
[2021-02-13 15:27] LABS: AST(SGOT) 13 U/L (15-37); Alanine Aminotransfer ALT/SGPT 16 U/L (13-56); Albumin, Serum 3.8 g/dL (3.2-5.0); Alkaline Phosphatase 100 U/L (45-117); Anion Gap 5 (5-15); BUN 16 mg/dL (7-18); BUN/Creat Ratio 16.2 RATIO (10-20); Calcium,Total 8.8 mg/dL (8.5-10.1); Chloride 110 mmol/L (98-107); Cholesterol 211 mg/dL (200); Creatinine, Serum 0.99 mg/dL (0.55-1.02); EST Glomerular Filtration Rate 63 mL/min (>60); Est Glom Filt Rate - Afr Amer 76 mL/min (>60); Globulin 3.7 g/dL (2.2-4.2); Glucose 90 mg/dL (74-106); High Density Lipoprotein 68 mg/dL; Magnesium 2.4 mg/dL (1.6-2.6); Potassium 4.1 mmol/L (3.5-5.1); Protein, Total 7.5 g/dL (6.4-8.2); Sodium Level 140 mmol/L (136-145); Thyroid Stim Hormone (TSH) 1.45 uIU/mL (0.358-3.74); Triglycerides 105 mg/dL; Very Low Density Lipoprotein 21 mg/dL (5-40)
== END ==
PROVIDERS: PCP Internal Medicine; Referring Provider Physician Assistant; Visit Provider Physician Assistant
DX: G43.909 Migraine, unspecified, not intractable, without status migrainosus (principal); F41.8 Other specified anxiety disorders
CPT/HCPCS: 36415; 80053; 80061; 83735; 84443; 85025

== ENCOUNTER 2021-11-13 15:26 | Outpatient (CLI) | payer OTHER, SELFPAY ==
[2021-11-13 16:37] LABS: Absolute Lymphocyte Count 1.72 X10^3/uL (0.83-4.51); Absolute Neutrophil Count 2.4 X10^3/uL (2.0-7.7); Basophil# 0.06 X10^3/uL; Basophil% 1.3 % (0-1); Eosinophil# 0.19 X10^3/uL; Hemoglobin 13.7 g/dL (12.0-15.0); Lymphocyte # 1.72 X10^3/ul (0.83-4.51); Lymphocyte % 36.3 % (19-41); Mean Corp Hgb Conc 31.9 g/dL (32-36); Mean Corpuscular Hgb 29.1 pg (27.0-32.0); Mean Corpuscular Volume 91.3 fL (81-99); Mean Platelet Vol. 10.6 fl (6.2-12.0); Monocyte# 0.36 X10^3/uL; Monocyte% 7.6 % (0-10); NRBC Flagged by Analyzer 0 % (0-5); Neutrophil % 50.6 % (47-70); Platelet Count 214 K/mm3 (150-450); RBC Distribution Width CV 12.5 % (11.6-14.6); Red Blood Count 4.71 M/mm3 (4.2-5.4); White Blood Count 4.7 K/mm3 (4.4-11.0)
[2021-11-13 17:06] LABS: ALB/GLOB Ratio 1.1 RATIO (0.9-2.4); AST(SGOT) 12 U/L (15-37); Alanine Aminotransfer ALT/SGPT 20 U/L (13-56); Albumin, Serum 3.9 g/dL (3.2-5.0); Alkaline Phosphatase 93 U/L (45-117); Anion Gap 3 (5-15); BUN 19 mg/dL (7-18); BUN/Creat Ratio 17.3 RATIO (10-20); Calcium,Total 8.7 mg/dL (8.5-10.1); Chloride 112 mmol/L (98-107); EST Glomerular Filtration Rate 55 mL/min (>60); Est Glom Filt Rate - Afr Amer 67 mL/min (>60); Globulin 3.5 g/dL (2.2-4.2); Glucose 92 mg/dL (74-106); Potassium 3.9 mmol/L (3.5-5.1); Protein, Total 7.4 g/dL (6.4-8.2); Sodium Level 142 mmol/L (136-145); T4 Free Direct 0.87 ng/dL (0.76-1.46); Thyroid Stim Hormone (TSH) 1.31 uIU/mL (0.358-3.74)
== END 2021-11-13 23:59 | disposition home or self-care (01) ==
LOC: BIMLAB 15:27
PROVIDERS: PCP Internal Medicine; Referring Provider Internal Medicine; Visit Provider Internal Medicine
DX: R00.1 Bradycardia, unspecified (principal)
CPT/HCPCS: 36415; 80053; 84439; 84443; 85025

== ENCOUNTER 2021-11-26 08:02 | Outpatient (CLI) | payer OTHER, SELFPAY ==
--- NOTE | 2021-11-26 08:03 | BI_ITS ---
MAMMOGRAPHY - BILATERAL SCREENING 3-D TOMOSYNTHESIS REASON FOR EXAM: Female, 56 years old. screening PERTINENT HISTORY: No significant family history. TECHNIQUE: 2-D mammograms and 3-D Tomosynthesis of the breast (s) were performed. CAD was performed. COMPARISON: 11/25/2020 FINDINGS: The breast composition is heterogeneously dense that can obscure small breast masses. Scattered benign calcifications are seen. No dense spiculated masses or suspicious microcalcifications are identified. No architectural distortion is identified. There is no skin thickening or retraction. There has been no significant change since the prior study. BI/SCRN MAMM (CAD)W/JAYNE BILAT IMPRESSION: No mammographic signs of malignancy. Routine yearly mammograms recommended. ASSESSMENT CATEGORY: BIRADS Category 1: Negative. A letter regarding these results will be sent to the patient by the facility within 30 days. FOLLOW UP RECOMMENDATION: Yearly follow up mammogram recommended. (A) Approximately 10% of breast cancers are not detected by mammography. A normal mammogram should not delay biopsy of a clinically suspicious abnormality. Electronically Signed: Lemuel Spicer MD at 8:58 EDT ,
== END 2021-11-26 23:59 | disposition home or self-care (01) ==
LOC: OPBI 08:03
PROVIDERS: PCP Internal Medicine; Visit Provider Obstetrics & Gynecology
DX: Z12.31 Encounter for screening mammogram for malignant neoplasm of breast (principal)
CPT/HCPCS: 77063; 77067

== ENCOUNTER → 2022-02-25 | Outpatient (CLI) | payer OTHER, SELFPAY ==
[2022-02-25 17:36] LABS: Cholesterol 200 mg/dL (200); High Density Lipoprotein 53 mg/dL; Triglycerides 147 mg/dL; Very Low Density Lipoprotein 29 mg/dL (5-40)
== END | disposition home or self-care (01) ==
LOC: BIMLAB 16:07
PROVIDERS: PCP Internal Medicine; Referring Provider Internal Medicine; Visit Provider Internal Medicine
DX: Z00.00 Encounter for general adult medical examination without abnormal findings (principal)
CPT/HCPCS: 36415; 80061

== ENCOUNTER → 2022-03-11 | Outpatient (CLI) | payer OTHER, SELFPAY ==
--- NOTE | 2022-03-11 07:59 | ECHOCS_ITS ---
Reason For Study: Arrhythmia Procedure This was a 2D Doppler, Color Flow transthoracic echocardiogram. Contrast injection was performed. Exam performed in department. Left Ventricle Normal LV size. Left ventricular systolic function is normal. The estimated ejection fraction is 55 %. Normal diastology for age. No regional wall motion abnormalities noted. Right Ventricle Normal RV size. Normal systolic function. Atria The left atrium is mildly enlarged. Normal right atrium. Mitral Valve Normal mitral valve. Tricuspid Valve Normal tricuspid valve. Mild tricuspid valve insufficiency. Pulmonary artery systolic pressure is 24 mmHg. Aortic Valve Normal aortic valve. Trisinus/trileaflet aortic valve. Pulmonic Valve The pulmonic valve is not well visualized. Great Vessels Normal aortic root. The pulmonary artery is normal size. Normal inferior vena cava. Pericardium/Pleural No pericardial effusion. Medication Diluted definity 6ml given slow IV push to enhance endocardial definition. MMode/2D Measurements & Calculations LVIDd: 5.8 cm IVSd: 0.70 cm Ao root diam: 3.1 cm LVIDs: 3.3 cm LVPWd: 1.1 cm RVDd: 2.7 cm FS: 42.8 % LAV(MOD-bp): 75.9 ml LA A4 area: 23.4 cm2 LA dimension(2D): 3.8 cm LAV(MOD-bp) Indexed: 34.1 ml/m2 LAV(MOD-sp2): 66.9 ml LAV(MOD-sp4): 77.7 ml RA A4 area: 13.2 cm2 Doppler Measurements & Calculations MV E max maninder: 44.3 cm/sec Lat Peak E' Maninder: 9.4 cm/sec Med Peak E' Maninder: 8.5 cm/sec MV A max maninder: 37.0 cm/sec E/E' lat: 4.7 E/E' med: 5.2 MV E/A: 1.2 Ao V2 max: 119.6 cm/sec LV V1 max: 89.3 cm/sec PA V2 max: 86.7 cm/sec Ao max P.7 mmHg LV V1 max P.2 mmHg Ao V2 mean: 80.1 cm/sec Ao mean P.8 mmHg Ao V2 VTI: 22.3 cm TR max maninder: 234.2 cm/sec TR max P.9 mmHg ECHO/Echo Complete W/ Contrast Interpretation Summary Normal LV size. Left ventricular systolic function is normal. The estimated ejection fraction is 55 %. The left atrium is mildly enlarged. Contrast injection was performed. Structurally normal valves. Ordering Physician: Kranthi Aguila Referring Physician: Lamont Herzog Performed By: Sophy Fink, NATALIE, RVT
== END | disposition home or self-care (01) ==
PROVIDERS: PCP Internal Medicine; Referring Provider Internal Medicine Cardiovascular Disease; Visit Provider Internal Medicine Cardiovascular Disease
DX: I49.3 Ventricular premature depolarization (principal); R00.1 Bradycardia, unspecified
CPT/HCPCS: 93225; 93226; 93306; Q9957; A4216; C8929

== ENCOUNTER 2022-11-27 22:08 | Emergency (ER) | payer OTHER, SELFPAY ==
[2022-11-27 22:09] VITALS: BP 160/90; PULSE 61; RESP 18; TEMP 36.8; O2SAT 100; BMI 41.0
[2022-11-27 22:24] VITALS: O2SAT 99
--- NOTE | 2022-11-27 22:24 | EKG12_ITS ---
Test Reason : CP Blood Pressure : / mmHG Vent. Rate : 055 BPM Atrial Rate : 055 BPM P-R Int : 134 ms QRS Dur : 084 ms QT Int : 410 ms P-R-T Axes : 029 -11 032 degrees QTc Int : 392 ms Sinus bradycardia Otherwise normal ECG Confirmed by KARL MORFIN, BENOIT ([id number]), editorial assistant IRIS ORELLANA ([id number]) on 11/30/2022 11:07:54 AM Referred By: CHYNA Confirmed By:BENOIT BARAJAS MD
--- NOTE | 2022-11-27 22:25 | EDS_ITS ---
HPI History of Present Illness Chief Complaint: Chest Pain Informant: patient Narrative Narrative: Chest pressure dyspnea started 7 PM while watching TV. 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 No recent illness. No fevers. No nausea or diaphoresis. Stress test a few years ago. No family history of MIs at young age. Denies hypertension diabetes or hyperlipidemia. Reports history of bradycardia and migraines. No recent travel surgeries or immobilizations. No history of PE or DVT. Denies any tobacco history. States since symptoms started there is been no improvement. Prior Similar Symptoms: No CVD Risk Factors: Negative for Hypertension, Diabetes, Hypercholesterolemia, Family History 1' </=55 or Smoking PE Risk Factors: Negative for Recent Travel/Surgery, Recent Immobilization or Prior DVT or PE [facility] Medical History Abnormal electrocardiogram Bradycardia GERD (gastroesophageal reflux disease) Hemorrhoids History Abnormally Pap Hx of migraines left breast needle biopsy Migraine Premature ventricular contractions Preventative health care Screening for intestinal cancer Screening for thyroid disorder Thrombosed external hemorrhoid Vertigo Home Medications Depo-Medrol 40 mg/mL suspension for injection (methylprednisolone acetate) 40 mg intra-articular ONCE #1 mL 02/20/19 [Clinic Last Taken Unknown] coenzyme Q10 75 mg capsule (Ultra CoQ10) 75 mg PO DAILY 09/25/20 [History Last Taken Unknown] ondansetron HCl 4 mg tablet (Zofran) 4 mg PO .prn 09/25/20 [History Last Taken Unknown] eletriptan 40 mg tablet 40 mg PO .PRN 11/13/21 [History Last Taken Unknown] loratadine 10 mg tablet (Claritin) 10 mg PO DAILY 11/13/21 [History Last Taken Unknown] meclizine 25 mg tablet 25 mg PO BID PRN dizziness #30 tabs 11/13/21 [Rx Last Taken Unknown] rimegepant 75 mg disintegrating tablet (Nurtec ODT) 75 mg PO ONCE PRN 11/13/21 [History Last Taken Unknown] topiramate 100 mg capsule,extended release 24 hr (Trokendi XR) 100 mg PO DAILY 11/13/21 [History Last Taken Unknown] eptinezumab-jjmr 100 mg/mL intravenous solution (Vyepti) 300 mg .Route [id number] 01/27/22 [History Last Taken Unknown] triamcinolone acetonide 0.1 % topical ointment 1 applic topical BID #30 grams 03/14/22 [Rx Last Taken Unknown] duloxetine 60 mg capsule,delayed release (Cymbalta) 60 mg PO QHS #90 caps 04/18/22 [Rx Last Taken Unknown] azithromycin 250 mg tablet See Rx Instructions PO .COMPLEX #6 tabs 08/03/22 [Rx Last Taken Unknown] Allergy/AdvReac Type Severity Reaction Status Date / Time escitalopram [From Lexapro] AdvReac Intermediate Nausea Verified 11/27/22 22:11 doxycycline AdvReac Nausea Verified 11/27/22 22:11 sulfamethoxazole AdvReac Nausea Verified 11/27/22 22:11 [From Bactrim] trimethoprim [From Bactrim] AdvReac Nausea Verified 11/27/22 22:11 vancomycin AdvReac Rash Verified 11/27/22 22:11 venlafaxine [From Effexor] AdvReac Nausea Verified 11/27/22 22:11 Family History Sister Cancer Other Asthma Breast cancer Hypertension Thyroid disorder Surgical History H/O arthroscopy of left knee H/O basal cell carcinoma excision H/O lateral meniscus repair of left knee H/O: H/O: hysterectomy History of melanoma excision History of tonsillectomy and adenoidectomy Social History household members: spouse housing: house number of children: 2 current occupational status: retired current occupation: retired Smoking Status: Never smoker second hand exposure: No alcohol intake: never details: social substance use type: does not use what type of physical activity do you participate in: walking, aerobics and weight training frequency: 3-4 times per week duration: 15-30 minutes/day seatbelt use: always do you feel safe at home: Yes 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 RECINOS ED Constitutional Constitutional ED: Denies chills, fever(s) or sweats Eyes Eyes: Denies change in vision ENT ENT ED: Denies dysphagia or sore throat Cardiovascular Cardiovascular: Reports chest pain; Denies leg edema, palpitations or racing heartbeat Respiratory/Chest Respiratory/Chest: Reports dyspnea; Denies cough or dyspnea on exertion Gastrointestinal Gastrointestinal: Denies abdominal pain, diarrhea, nausea or vomiting Genitourinary Genitourinary ED: Denies dysuria, hematuria or urinary frequency Musculoskeletal Musculoskeletal: Denies back pain, extremity pain or neck pain Integumentary Denies rash or wounds Neurologic Neurologic: Denies headache(s), paresthesias or weakness EXAM Physical Exam Const Vital Signs: 11/27/22 22:09 11/27/22 22:18 11/27/22 22:24 Temperature 98.3 F Temperature Source Temporal Pulse Rate 61 Respiratory Rate 18 Respiratory Effort Normal Non-Labored Blood Pressure 160/90 H Blood Pressure Mean 113 Pulse Ox 100 99 Oxygen Delivery Method Room Air Room Air 11/27/22 22:47 11/27/22 23:16 11/27/22 23:09 Temperature Temperature Source Pulse Rate 54 L 55 L 51 L Respiratory Rate 17 Respiratory Effort Blood Pressure 135/68 H 130/76 H 130/76 H Blood Pressure Mean 94 Pulse Ox 97 Oxygen Delivery Method Room Air 11/27/22 23:44 11/28/22 00:00 Temperature Temperature Source Pulse Rate 55 L 53 L Respiratory Rate 17 18 Respiratory Effort Blood Pressure 124/78 H 121/68 H Blood Pressure Mean 93 85 Pulse Ox 96 96 Oxygen Delivery Method Room Air Room Air Positive well nourished and well developed General Appearance ED: well developed and NAD HEENT Reports moist mucous membranes normocephalic and atraumatic Eyes PERRL, EOMs intact bilaterally and conjunctivae normal General Eye ED: Yes normal appearance of both eyes Neck no lymphadenopathy and supple General: Negative for tenderness Chest Wall Chest: Negative for tenderness Resp normal respiratory effort and normal air movement Effort and Inspection: symmetric chest movement; Negative for respiratory distress Cardio regular rate, regular rhythm and no murmurs Peripheral Pulses: pulses 2+ throughout GI normal to inspection, nondistended, normoactive bowel sounds and non-tender Palpation: Negative for guarding or rebound tenderness present Back/Spine no CVA tenderness and no thoracic nor lumbar tenderness Extremity normal to inspection General Extremety ED: Negative for edema or tenderness General Extremity: Negative for edema Neuro oriented x3 and no sensory deficits noted Sensorium / Orientation: awake and alert Skin no rashes or lesions noted and no wounds Heart Score History: Moderately Suspicious ECG: Normal Age: >45 - <65 years Risk Factors: 1 or 2 Risk Factors Troponin: </= Normal Limit Score: 3 MDM MDM MDM Narrative Medical decision making narrative: Interventions / MDM: Differential diagnosis: ACS, chest pain Diagnosis considered but do not suspect: Pneumothorax, negative chest x-ray, symmetric breath sounds My EKG interpretation: Sinus rate of 55, no ST changes, T wave inversions lateral leads V3 to V6, similar changes from January 2022. Imaging independently reviewed and interpreted by myself: 2 view chest x-ray negative acute process External documents reviewed: N/A Test considered but not ordered:N/A ED course: EKG chronic T wave inversion lateral leads. Aspirin nitro series slowly improved. Cardiac work-up troponin negative x2. Heart score is a 3. Patient no PE risk factors. Improved on reevaluation. With 2 negative troponins, ACS rule out by algorithm. She is symptom-free. Discussed outpatient follow-up for stress test with strict return precautions. All questions were answered. Re-evaluation: stable Disposition discussed with patient/family/significant other: Patient and significant other Case discussed with consulting clinician: N/A Lab Data Attestation: I reviewed the patient's lab results. Labs: Laboratory Results - last 24 hr 11/27/22 11/27/22 11/28/22 22:25 22:25 00:25 WBC 7.3 RBC 4.68 Hgb 13.6 Hct 42.7 MCV 91.2 MCH 29.1 MCHC 31.9 L RDW Std Deviation 42.0 RDW Coeff of Gage 12.6 Plt Count 216 MPV 9.6 Immature Gran % (Auto) 0.300 Neut % (Auto) 48.1 Lymph % (Auto) 35.5 [place] % (Auto) 9.7 Eos % (Auto) 5.2 H Baso % (Auto) 1.2 H Absolute Neuts (auto) 3.5 Absolute Lymphs (auto) 2.60 Nucleated RBC % 0 Sodium 139 Potassium 3.8 Chloride 110 H Carbon Dioxide 27.0 Anion Gap 2 L BUN 22 H Creatinine 1.01 Estim Creat Clear Calc 63.49 Est GFR (MDRD) Af Amer 73 Est GFR (MDRD) Non-Af 60 BUN/Creatinine Ratio 21.8 H Glucose 100 Calcium 9.1 Troponin I High Sens 5 5 Radiography Diagnostic Testing: Clinical Impression(s) from Imaging Studies Chest X-Ray 11/27/22 22:50 IMPRESSION: No evidence of acute cardiopulmonary disease. Electronically Signed: Austin Corrigan DO at 23:36 EDT , Discharge Plan Triage Chief Complaint: Chest Pain ED Provider: Italo Robin Dx/Rx/DC Orders Clinical Impression: Chest pain Instructions: ED Chest Pain, Uncertain Cause Prescriptions: No Action methylprednisolone acetate [Depo-Medrol] 40 mg/mL suspension 40 mg INTRAARTIC ONCE Qty: 1 0RF Ultra CoQ10 75 mg capsule 75 mg PO DAILY ondansetron HCl [Zofran] 4 mg tablet 4 mg PO .prn Vyepti 100 mg/mL solution 300 mg .Route [id number] Rx Instructions: infusion q 3 months loratadine [Claritin] 10 mg tablet 10 mg PO DAILY Trokendi XR 100 mg capsule,extended release 24hr 100 mg PO DAILY Nurtec ODT 75 mg tablet,disintegrating 75 mg PO ONCE PRN Rx Instructions: as a single dose eletriptan 40 mg tablet 40 mg PO .PRN meclizine 25 mg tablet 25 mg PO BID PRN (Reason: dizziness) Qty: 30 1RF triamcinolone acetonide 0.1 % ointment 1 applic topical BID Qty: 30 0RF Rx Instructions: Apply to all affected areas BID x 14 days. azithromycin 250 mg tablet See Rx Instructions PO .COMPLEX Qty: 6 0RF Rx Instructions: take 500 mg today (day 1), then 250 mg for 4 days (days 2-5) PO duloxetine [Cymbalta] 60 mg capsule,delayed release(DR/EC) 60 mg PO QHS Qty: 90 3RF Primary Care Provider: Lamont Herzog Referrals: Lamont Herzog MD [Primary Care Provider] - 3-5 Days Activity Restrictions/Additional Instructions: Work-up negative with troponin negative x2. Follow-up with your doctor for the outpatient testing. Return if worsening symptoms. Disposition Disposition: Home, Self Care
[2022-11-27] MEDS: Aspirin 81 MG TAB.CHEW 324 MG PO (22:30)
[2022-11-27 22:33] LABS: Absolute Neutrophil Count 3.5 X10^3/uL (2.0-7.7); Basophil# 0.09 X10^3/uL; Basophil% 1.2 % (0-1); Eosinophil# 0.38 X10^3/uL; Eosinophils% 5.2 % (0-5); Hematocrit 42.7 % (37-47); Hemoglobin 13.6 g/dL (12.0-15.0); Lymphocyte % 35.5 % (19-41); Mean Corp Hgb Conc 31.9 g/dL (32-36); Mean Corpuscular Hgb 29.1 pg (27.0-32.0); Mean Corpuscular Volume 91.2 fL (81-99); Mean Platelet Vol. 9.6 fl (6.2-12.0); Monocyte# 0.71 X10^3/uL; Monocyte% 9.7 % (0-10); NRBC Flagged by Analyzer 0 % (0-5); Neutrophil # 3.52 X10^3/uL (2.7-7.7); Neutrophil % 48.1 % (47-70); Platelet Count 216 K/mm3 (150-450); RBC Distribution Width CV 12.6 % (11.6-14.6); Red Blood Count 4.68 M/mm3 (4.2-5.4); White Blood Count 7.3 K/mm3 (4.4-11.0)
[2022-11-27 22:47] VITALS: BP 135/68; PULSE 54
[2022-11-27] MEDS: Nitroglycerin SL (ED/IMG/CATH) 0.4 MG TABLET SL ×2 (22:47→23:16)
--- NOTE | 2022-11-27 22:50 | RAD_ITS ---
INDICATION: chest pain EXAMINATION/TECHNIQUE: X-RAY - XR Chest 2 Views COMPARISON: 07/17/2015. FINDINGS: LINES/DEVICES: None. LUNGS: No consolidation or evidence of an effusion. No evidence of edema or a pneumothorax. MEDIASTINUM AND CARDIOVASCULAR STRUCTURES: Cardiac silhouette is normal in size and contour. Mediastinum is unremarkable. BONES AND SOFT TISSUES: No acute abnormality. RAD/Chest PA and Lateral IMPRESSION: No evidence of acute cardiopulmonary disease. Electronically Signed: Austin Corrigan DO at 23:36 EDT ,
[2022-11-27 22:56] LABS: Anion Gap 2 (5-15); BUN 22 mg/dL (7-18); BUN/Creat Ratio 21.8 RATIO (10-20); Calcium,Total 9.1 mg/dL (8.5-10.1); Chloride 110 mmol/L (98-107); Creatinine, Serum 1.01 mg/dL (0.55-1.02); EST Glomerular Filtration Rate 60 mL/min (>60); Est Glom Filt Rate - Afr Amer 73 mL/min (>60); Estimated Creatinine Clearance 63.49 ml/min; Glucose 100 mg/dL (74-106); Potassium 3.8 mmol/L (3.5-5.1); Sodium Level 139 mmol/L (136-145); Troponin-I HS (w/2H Reflex) 5 pg/mL (3.0-54.0)
[2022-11-27 23:09] VITALS: BP 130/76; PULSE 51; RESP 17; O2SAT 97
[2022-11-27 23:16] VITALS: BP 130/76; PULSE 55
[2022-11-27 23:44] VITALS: BP 124/78; PULSE 55; RESP 17; O2SAT 96
[2022-11-28] VITALS: BP 121/68; PULSE 53; RESP 18; O2SAT 96
[2022-11-28 00:29] LABS: Reflex Troponin-HS? (from REC) Y
[2022-11-28 00:56] LABS: Troponin-I HS 5 pg/mL (3.0-54.0)
[2022-11-28 01:04] VITALS: BP 121/68; PULSE 53; RESP 18; O2SAT 96
== END 2022-11-28 01:18 | disposition home or self-care (01) ==
PROVIDERS: Emergency Provider Emergency Medicine; PCP Internal Medicine; Visit Provider Emergency Medicine
DX: R07.9 Chest pain, unspecified (principal); G43.909 Migraine, unspecified, not intractable, without status migrainosus; Z79.899 Other long term (current) drug therapy; R42 Dizziness and giddiness
CPT/HCPCS: 71046; 80048; 84484; 85025; 93005; 99285

== ENCOUNTER → 2022-12-03 | Outpatient (CLI) | payer OTHER, SELFPAY ==
--- NOTE | 2022-12-03 08:10 | BI_ITS ---
MAMMOGRAPHY - BILATERAL SCREENING REASON FOR EXAM: Female, 57 years old. Routine annual screening examination. PERTINENT HISTORY: Grandmother with breast cancer. Aunt with breast cancer. Prior left ultrasound-guided breast biopsy. TECHNIQUE: Digital bilateral breast jayne (3D mammographic acquisition) in the CC and MLO projections. 2-D mediolateral oblique (MLO) and craniocaudad (CC) views of both breasts were obtained. CAD: Full Field Digital Mammography with Computer Added Detection was performed. COMPARISON: Comparison is made with prior study November 26, 2021 and November 25, 2020. FINDINGS: Breast Composition: The breasts are heterogeneously dense, which may obscure small masses. There are no dominant masses or suspicious calcifications. A tissue clip marker is once again seen in the upper lateral aspect of the left breast decompressed with prior ultrasound-guided breast biopsy. Stable small benign-appearing bilateral axillary lymph nodes. No other significant abnormalities are identified. There has been no significant change since the prior study. BI/SCRN MAMM (CAD)W/JAYNE BILAT IMPRESSION: Stable bilateral screening mammogram. Yearly follow-up mammogram recommended. (A) ASSESSMENT CATEGORY: BIRADS Category 2: Benign. A letter regarding these results will be sent to the patient by the facility within 30 days. Approximately 10% of breast cancers are not detected by mammography. A normal mammogram should not delay biopsy of a clinically suspicious abnormality. [id number] Electronically Signed: Ozzy Mchugh MD at 9:05 EDT ,
== END | disposition home or self-care (01) ==
LOC: OPBI 08:08
PROVIDERS: PCP Internal Medicine; Referring Provider Obstetrics & Gynecology; Visit Provider Obstetrics & Gynecology
DX: Z12.31 Encounter for screening mammogram for malignant neoplasm of breast (principal); F41.8 Other specified anxiety disorders; Z80.3 Family history of malignant neoplasm of breast
CPT/HCPCS: 77063; 77067

== ENCOUNTER → 2023-02-25 | Outpatient (CLI) | payer OTHER, SELFPAY ==
[2023-02-25 15:53] LABS: Absolute Lymphocyte Count 1.98 X10^3/uL (0.83-4.51); Absolute Neutrophil Count 2.8 X10^3/uL (2.0-7.7); Basophil# 0.07 X10^3/uL; Basophil% 1.2 % (0-1); Eosinophil# 0.25 X10^3/uL; Eosinophils% 4.4 % (0-5); Hematocrit 42.8 % (37-47); Hemoglobin 13.5 g/dL (12.0-15.0); Lymphocyte # 1.98 X10^3/ul (0.83-4.51); Lymphocyte % 34.9 % (19-41); Mean Corp Hgb Conc 31.5 g/dL (32-36); Mean Corpuscular Hgb 28.7 pg (27.0-32.0); Mean Corpuscular Volume 91.1 fL (81-99); Mean Platelet Vol. 10.5 fl (6.2-12.0); Monocyte# 0.53 X10^3/uL; Monocyte% 9.3 % (0-10); NRBC Flagged by Analyzer 0 % (0-5); Neutrophil # 2.83 X10^3/uL (2.7-7.7); Platelet Count 227 K/mm3 (150-450); RBC Distribution Width CV 12.8 % (11.6-14.6); RBC Distribution Width SD 43.1 fl (35.1-43.9); White Blood Count 5.7 K/mm3 (4.4-11.0)
[2023-02-25 16:21] LABS: Hemoglobin A1c 5.4 % (3.8-5.6)
[2023-02-25 16:33] LABS: ALB/GLOB Ratio 0.9 RATIO (0.9-2.4); AST(SGOT) 14 U/L (15-37); Alanine Aminotransfer ALT/SGPT 23 U/L (13-56); Albumin, Serum 3.7 g/dL (3.2-5.0); Alkaline Phosphatase 104 U/L (45-117); Anion Gap 4 (5-15); BUN 18 mg/dL (7-18); BUN/Creat Ratio 20.2 RATIO (10-20); Calcium,Total 8.8 mg/dL (8.5-10.1); Chloride 108 mmol/L (98-107); Cholesterol 196 mg/dL (200); Creatinine, Serum 0.89 mg/dL (0.55-1.02); EST Glomerular Filtration Rate 70 mL/min (>60); Est Glom Filt Rate - Afr Amer 85 mL/min (>60); Globulin 3.9 g/dL (2.2-4.2); Glucose 89 mg/dL (74-106); High Density Lipoprotein 56 mg/dL; Potassium 3.7 mmol/L (3.5-5.1); Protein, Total 7.6 g/dL (6.4-8.2); Sodium Level 139 mmol/L (136-145); T4 Free Direct 0.82 ng/dL (0.76-1.46); Thyroid Stim Hormone (TSH) 1.89 uIU/mL (0.358-3.74); Triglycerides 116 mg/dL; Very Low Density Lipoprotein 23 mg/dL (5-40)
== END | disposition home or self-care (01) ==
LOC: BIMLAB 14:26
PROVIDERS: PCP Internal Medicine; Referring Provider Internal Medicine; Visit Provider Internal Medicine
DX: E66.01 Morbid (severe) obesity due to excess calories (principal); F41.9 Anxiety disorder, unspecified; F32.A Depression, unspecified; Z13.29 Encounter for screening for other suspected endocrine disorder
CPT/HCPCS: 36415; 80053; 80061; 83036; 84439; 84443; 85025

== ENCOUNTER → 2023-03-16 | Outpatient (CLI) | payer OTHER, SELFPAY | END | disposition home or self-care (01) | LOC: SL 10:05 | PROVIDERS: Referring Provider Nurse Practitioner Gerontology; Visit Provider Nurse Practitioner Gerontology | DX: G47.10 Hypersomnia, unspecified (principal) | CPT/HCPCS: 95806 ==

== ENCOUNTER 2023-10-28 17:00 | Outpatient (RCR) | payer BC, SELFPAY ==
--- NOTE | 2023-09-07 17:46 | HP.PTEVAL_ITS ---
Patient's Visit Information Visit Information Visit Information: JESSICA VENTURA is a 57 year old F referred to Physical Therapy by Dr. Annika Ortega MD with a diagnosis of L PFitis.. Date of Evaluation: 09/07/23 Physical Therapist: Parker Drake, DPT, OCS, CSCS Visit Plan Frequency: 2x /Week Duration: 4-6 Weeks Plan: 2x/week for 4-6 weeks for 1. manual therapy to include graston on L PF, rollout L gastroc -soleus, joint mobs L metatarsals and ankle for DF, US L heel nonthermal.stretch gastroc-soleus adn PF, eccentric gastroc strength Consider dry needling if not improving. Subjective Subjective: L heel pain, PF itis. Been present 5-6 months. Walked alot at work at that time. has orthotics and typically does wear them. 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 Sometimes toes will numb. Sometimes heel pain. Has bunion and two hammer toes on that foot. Doing some stretching for toes. Towel curls, wall stretch. That hurts but stretches. Stretches for 10-15 seconds and does 10 1-2x/day.Tries to stretch first thing in am. sleep is OK. No other regular exercise. Basic ADLs are getting done. Enjoys walking and biking. Avoids biking and walking. Has tried walking boot for 3 months and it did not help. Orthotics in all the time now. has night splint, Had cortisone injection which did not help. Tried shockwave 5 sessions and it felt better sometimes but not lasting. Tried rolling under foot. Good candidate for surgery and MRI is denied from one doctor but not this one. Wants to walk on beach on vacation and get back into shape. Pain L Plantarfascia.: Pain Intensity (Out of 10): 0 Pain Intensity Range: 0 and 7 Comment: worse george, worse too much walking after sitting. Objective Objective: Walks with no antalgia into PT, slow and hesitant though on L WB. Good balance. Tender to palpation L heel plantarsurface minimal to moderately. Very stiff metatarsals B and ankles with DF to 0 B , Normal inv/eversion, PF is full No pain. 4/5 inv/ev/DF/ PF, able to heel raise. reflexes 2/3 patella and achilles Sensation WNL to gross light touch. Balance/Special Test Scores Lower Extremity Functional Score: 41 Goals Goal 1:: 80% improvement in heel pain Goal Time Frame: 4-6 Weeks Goal 2:: Walk without antalgia in am. Goal Time Frame: 4-6 Weeks Goal 3:: I management of condition Goal Time Frame: 4-6 Weeks Goal 4:: LEFS score 50 Goal Time Frame: 4-6 Weeks Rehabilitation Potential Physical Therapy Diagnosis: L heel pain limiting comfortable function Rehabilitation Potential: Fair Anticipated Interventions Patient/Client Instruction: Educate patient on: Condition and Plan of Care For the Purpose of:: To decrease pain, To increase ROM, To improve nutrient d elivery to tissue, To improve muscle performance and motor function, To increase tolerance to activity/condition/position and To improve ability of physical actions for home/community/work/leisure Therapeutic Exercise to Include: Flexibilty training and Passive ROM For the Purpose of:: To decrease pain and To increase ROM Manual Therapy Techniques to Include: Trigger point massage, Mobilization, Passive ROM and Soft tissue mobilization For the Purpose of:: To decrease pain, To increase ROM, To improve nutrient delivery to tissue, To improve muscle performance and motor function and To increase tolerance to activity/condition/position Ultrasound (thermal/non thermal): Yes (nonthermal) For the Purpose of:: To decrease pain, To decrease swelling/inflammation and To improve nutrient delivery to tissue Text: Thank you for the opportunity to evaluate your patient. For Medicare and Medicare HMO plans, please review the plan of care and approve it. It will need to be FAXED BACK to us at [phone] for Medicare purposes. For Medicare only, by signing this I certify the plan of care. Please let me know if there are questions or concerns regarding this plan of care. Physician Signature: Date:
--- NOTE | 2023-10-05 17:47 | HP.PTREVAL ---
Re-Evaluation Intro: Dr. Annika Ortega MD, It has been my pleasure to treat JESSICA VENTURA over the last 7 visits for L PFitis.. Please see the progress note below for an update on the physical therapy plan of care! Subjective Subjective: I am getting there. Improvements noted in pain to 3/10 and 70% better. Walking has increased a little bit with nicer weather. It does get tender with walking, stretching helps. Sleep is OK. Getting up is intermittently painful. Not sure why bad days. To doctor next week. Objective Objective/Function: Pt doing well and coming along nicely considering her past failures with treatments. Orthotics are still funcitoning and covered adn supportive. Plan Plan Plan: recommend continuing the other 3 weeks of POC 2x/week and doing US and manual in clinic while patient continues stretching and strenghening at home. Next session once approved please with Gonzalez for DN and US adn manual and then continue graston-like manual Call when approved Balance/Gait/Functional tests Balance/Special Test Scores Lower Extremity Functional Score: 58 Goals Goals Goal 1:: 80% improvement in heel pain Goal Time Frame: 4-6 Weeks Goal Progress: Progressing Goal 2:: Walk without antalgia in am. Goal Time Frame: 4-6 Weeks Goal Progress: Progressing Goal 3:: I management of condition Goal Time Frame: 4-6 Weeks Goal Progress: Progressing Goal 4:: LEFS score 50 Goal Time Frame: 4-6 Weeks Goal Progress: Goal Met Anticipated Interventions Anticipated Interventions Patient/Client Instruction: Educate patient on: Condition and Plan of Care For the Purpose of:: To decrease pain, To increase ROM, To improve nutrient delivery to tissue, To improve muscle performance and motor function, To increase tolerance to activity/condition/position and To improve ability of physical actions for home/community/work/leisure Therapeutic Exercise to Include: Flexibilty training and Passive ROM For the Purpose of:: To decrease pain and To increase ROM Manual Therapy Techniques to Include: Trigger point massage, Mobilization, Passive ROM and Soft tissue mobilization For the Purpose of:: To decrease pain, To increase ROM, To improve nutrient delivery to tissue, To improve muscle performance and motor function and To increase tolerance to activity/condition/position Ultrasound (thermal/non thermal): Yes (nonthermal) For the Purpose of:: To decrease pain, To decrease swelling/inflammation and To improve nutrient delivery to tissue Re-Evaluation Ending Re-evaluation ending: Please do not hesitate to contact me at [phone] by phone or if you have questions or concerns regarding this new plan of care! Sincerely, Parker Drake, DPT, OCS, CSCS
--- NOTE | 2023-10-28 17:46 | HP.PTDCSUM_ITS ---
Discharge Summary D/C summary: It has been my pleasure to treat JESSICA VENTURA referred by Dr. Annika Ortega MD, with the diagnosis of L PFitis. for a total of 13 visit(s). Discharge Date: 10/28/23 Please see the following information for a summary of their discharge status. Subjective Subjective: Made progress. DN and US really helped. Pain is not bad, 1-2/10 in am or if she overdoes walking around campus. Goes away quick. Sleeping is good. To doctor in January. Activities: Life is normal. HEP : no problem, bought [employer].Doing strengthening with band. Pain L Plantarfascia.: Pain Intensity (Out of 10): 0 Overall Improvement % Improvement: 95 Objective Objective/Function: 5 degrees DF AROM B feet. Walking without pain today and steps reciprocally and normally. Goals Goal 1:: 80% improvement in heel pain Goal Progress: Goal Met Goal 2:: Walk without antalgia in am. Goal Progress: mostly met. Goal 3:: I management of condition Goal Progress: Goal Met Goal 4:: LEFS score 50 Goal Progress: Goal Met Plan Plan: d/c to HEP D/C Information Discharge Comments: Will f/u with doctor in December as needed. d/c sentence: If there are questions or concerns regarding this patient's physical therapy, please feel free to call me at [phone]. Thank you for the referral of this patient. Sincerely, Parker Drake, DPT, OCS, CSCS Balance/Gait/Functional tests Balance/Special Test Scores Lower Extremity Functional Score: 65 Improvement % Improvement: 95
== END 2023-10-28 19:00 | disposition home or self-care (01) ==
LOC: PT 17:00
PROVIDERS: Referring Provider Orthopaedic Surgery; Visit Provider Orthopaedic Surgery
DX: M72.2 Plantar fascial fibromatosis (principal)
CPT/HCPCS: 97035; 97110; 97140; 97161; 97530

== ENCOUNTER → 2023-12-06 | Outpatient (CLI) | payer BC, SELFPAY ==
--- NOTE | 2023-12-06 14:40 | BI_ITS ---
MAMMOGRAPHY - BILATERAL SCREENING REASON FOR EXAM: Female, 58 years old. Routine annual screening examination. PERTINENT HISTORY: Grandmother with breast cancer. Aunt with breast cancer. TECHNIQUE: Digital bilateral breast jayne (3D mammographic acquisition) in the CC and MLO projections. 2-D mediolateral oblique (MLO) and craniocaudad (CC) views of both breasts were obtained. CAD: Full Field Digital Mammography with Computer Added Detection was performed. COMPARISON: Comparison is made with prior study December 03, 2022 and November 26, 2021. FINDINGS: Breast Composition: The breasts are heterogeneously dense, which may obscure small masses. There are no dominant masses or suspicious calcifications. A tissue clip marker is once again seen within a small linear density in the upper lateral aspect of the left breast. Stable bilateral fat containing axillary lymph nodes. No other significant abnormalities are identified. There has been no significant change since the prior study. BI/SCRN MAMM (CAD)W/JAYNE BILAT IMPRESSION: Stable bilateral screening mammogram. Yearly follow-up mammogram recommended. (A) ASSESSMENT CATEGORY: BIRADS Category 2: Benign. A letter regarding these results will be sent to the patient by the facility within 30 days. Approximately 10% of breast cancers are not detected by mammography. A normal mammogram should not delay biopsy of a clinically suspicious abnormality. [id number] Electronically Signed: Ozzy Mchugh MD at 15:36 EDT ,
== END | disposition home or self-care (01) ==
LOC: OPBI 14:40
PROVIDERS: Visit Provider Obstetrics & Gynecology
DX: Z12.31 Encounter for screening mammogram for malignant neoplasm of breast (principal); Z80.3 Family history of malignant neoplasm of breast
CPT/HCPCS: 77063; 77067

== ENCOUNTER 2024-02-01 16:30 | Outpatient (RCR) | payer BC, SELFPAY | END 2024-02-01 19:00 | disposition home or self-care (01) | LOC: PT 16:30 | DX: M72.2 Plantar fascial fibromatosis (principal) ==

== ENCOUNTER 2024-06-23 11:22 | Outpatient (RCR) | payer BC, SELFPAY ==
--- NOTE | 2024-06-23 12:36 | HP.PTEVAL_ITS ---
Patient's Visit Information Visit Information Visit Information: JESSICA VENTURA is a 58 year old F referred to Physical Therapy by ROBBIE Kessler with a diagnosis of BPPV. Date of Evaluation: 06/23/24 Physical Therapist: NOHELIA Garcia Visit Plan Frequency: 1-2x /Week Duration: 2 Months Plan: Pt to have a PCP visit soon with recent issue 1-2X/ week for 8 weeks for progressive VOR exercises especially horizontal, walking with head turns, balance with vestibular inputs (foam) etc with HEP HEP: look horizontal R and L at 45-90 degrees without making self sick to stomach Subjective Subjective: Pt was getting a massage on Wednesday and the therapist turned her head to the R and she felt a slight dizziness and then when she went to bed that night she was really dizzy and it lasted less than a minute and it happened twice and she was extremely nauseated. [facility] to [facility] out [facility] infection and they dx her with BPPV. Meclizine did not help. Today she is not as dizzy but she is off and any sudden movements she is spinning but not as bad. She has Tinnitus. On Wednesday her R ear started ringing and plugged and then Wednesday she had the massage. She has no fallen but she def feels off when she walks. She feels like her brain has been scrambled and head pressure. She suffers from migraines and gets botox from them and she has had to take migraine meds from all of this. Objective Objective: -B Hallpike for dizziness or nystagmus. Both times when pt would sit up she felt dizzy that would last over a minute to subside. -Roll Test B -VA test R and L for dizziness Smooth pursuit horizontal no dizziness X 30 seconds Smooth pursuit vertical no dizziness X 30 seconds Head and eyes move together at 45 degree angle to 45 degree angle X 3o seconds at very slow and guarded motion X 30 seconds... no real dizziness Head and eyes move together at 90 degrees X 20 seconds and felt unsettled in her head feeling and felt her eyes do the jumpy nystagmus to catch up and repeated X 20 seconds and felt Slightly better but eyes were still jumpy to catch up with head. Repeated a third time for 20 seconds and remained the same Pt walks into the dept and wanting therapist to hold onto her and she does not move her head with gait. Balance/Special Test Scores Dizziness Score: 48 Goals Goal 1:: I HEP Goal Time Frame: 4-6 Weeks Goal 2:: Be able to turn head at 90 degree horizontal head turns X 30 seconds without dizziness in sitting and standing Goal Time Frame: 4-6 Weeks Goal 3:: Be able to walk and not feel that she has to hold onto something due to feeling dizzy and off Goal Time Frame: 4-6 Weeks Rehabilitation Potential Rehabilitation Potential: Good Anticipated Interventions Patient/Client Instruction: Educate patient on: Condition and Plan of Care For the Purpose of:: To increase ROM, To improve muscle performance and motor function, To improve ability to perform ADL's, To increase tolerance to act ivity/condition/position, To improve performance and independence with ADL's, To decrease level of supervision to perform tasks, To improve ability of physical actions for home/community/work/leisure, To improve gait and locomotor functions, To improve health of tissue, To improve endurance, To improve balance and To improve safety with gait Therapeutic Exercise to Include: Strength training, Endurance training, Balance training, Postural training, Flexibilty training, Gait and locomotor training and Neuromotor development For the Purpose of:: To improve nutrient delivery to tissue, To improve muscle performance and motor function, To improve ability to perform ADL's, To increase tolerance to activity/condition/position, To improve performance and independence with ADL's, To decrease level of supervision to perform tasks, To improve ability of physical actions for home/community/work/leisure, To improve gait and locomotor functions, To improve health of tissue and To improve safety with gait Functional Training to Include: Gait training For the Purpose of:: To improve gait and locomotor functions, To improve safety with gait and To assume or resume ADL's Text: Thank you for the opportunity to evaluate your patient. For Medicare and Medicare HMO plans, please review the plan of care and approve it. It will need to be FAXED BACK to us at [phone] for Medicare purposes. For Medicare only, by signing this I certify the plan of care. Please let me know if there are questions or concerns regarding this plan of care. Physician Signature: Date:
--- NOTE | 2024-07-03 10:15 | HP.PT.NRP ---
Patient Information Patient Information: JESSICA VENTURA was seen in my office for initial evaluation on 06/23/24. The following Plan of Care was established for this patient: POC Established Initial Frequency: 1-2x /Week Initial Duration: 2 Months Anticipated Interventions Patient/Client Instruction: Educate patient on: Condition and Plan of Care For the Purpose of:: To increase ROM, To improve muscle performance and motor function, To improve ability to perform ADL's, To increase tolerance to activity/condition/position, To improve performance and independence with ADL's, To decrease level of supervision to perform tasks, To improve ability of physical actions for home/community/work/leisure, To improve gait and locomotor functions, To improve health of tissue, To improve endurance, To improve balance and To improve safety with gait Therapeutic Exercise to Include: Strength training, Endurance training, Balance training, Postural training, Flexibilty training, Gait and locomotor training and Neuromotor development For the Purpose of:: To improve nutrient delivery to tissue, To improve muscle performance and motor function, To improve ability to perform ADL's, To increase tolerance to activity/condition/position, To improve performance and independence with ADL's, To decrease level of supervision to perform tasks, To improve ability of physical actions for home/community/work/leisure, To improve gait and locomotor functions, To improve health of tissue and To improve safety with gait Functional Training to Include: Gait training For the Purpose of:: To improve gait and locomotor functions, To improve safety with gait and To assume or resume ADL's Last Seen Last Seen: This patient was last seen in our office 06/23/24. Pertinent comments regarding their Physical therapy will appear below: DC PT. Pt had a viral inner ear infection and went back to PCP on advise of PT At this point I will be discontinuing this patient from physical therapy. I would be happy to see this patient again in the future if found appropriate by the physician. Thank you! Bree Steen, NOHELIA Balance/Gait/Functional tests Balance/Special Test Scores Dizziness Score: 48
== END 2024-06-23 19:00 | disposition home or self-care (01) ==
LOC: PT 11:22
PROVIDERS: PCP Family Medicine; Referring Provider Physician Assistant; Visit Provider Physician Assistant
DX: H81.10 Benign paroxysmal vertigo, unspecified ear (principal)
CPT/HCPCS: 97162

== ENCOUNTER → 2024-09-15 | Outpatient (CLI) | payer BC, SELFPAY ==
--- NOTE | 2024-09-15 15:27 | RAD_ITS ---
EXAM: XR Abdomen, 1 View CLINICAL INDICATION: TECHNIQUE: Frontal supine view of the abdomen/pelvis. COMPARISON: No relevant prior studies available. FINDINGS: GASTROINTESTINAL TRACT: Constipation with suggestion of fecal impaction of the rectum. No dilation. BONES/JOINTS: Unremarkable. No acute fracture. RAD/Abdomen Single View IMPRESSION: Constipation with suggestion of fecal impaction of the rectum. Reading [facility]
[2024-09-15 18:16] LABS: AST(SGOT) 11 U/L (15-37); Alanine Aminotransfer ALT/SGPT 14 U/L (13-56); Amylase 45 U/L (25-115)
== END | disposition home or self-care (01) ==
PROVIDERS: PCP Family Medicine
DX: R10.11 Right upper quadrant pain (principal)
CPT/HCPCS: 36415; 74018; 82150; 84450; 84460

== ENCOUNTER → 2024-09-19 | Outpatient (CLI) | payer BC, SELFPAY ==
--- NOTE | 2024-09-19 09:32 | US_ITS ---
EXAM: US Abdomen Limited, Right Upper Quadrant CLINICAL INDICATION: TECHNIQUE: Real-time ultrasound of the right upper quadrant with image documentation. COMPARISON: No relevant prior studies available. FINDINGS: LIVER: Liver measures up to 16.1 cm. No intrahepatic bile duct dilation. GALLBLADDER: Negative Cosme's sign was reported by the [facility] principal solution specialist. No gallstones. COMMON BILE DUCT: Unremarkable as visualized. No stones. No dilation. Common bile duct measures 0.3 cm in diameter. PANCREAS: Unremarkable as visualized. RIGHT KIDNEY: Unremarkable. No stones. No hydronephrosis. The right kidney measures 10.3 x 6.7 x 5.6 cm. US/Abdomen Limited IMPRESSION: No acute findings in the right upper quadrant. Reading Location: [facility]
== END | disposition home or self-care (01) ==
PROVIDERS: PCP Family Medicine
DX: R10.11 Right upper quadrant pain (principal)
CPT/HCPCS: 76705

== ENCOUNTER 2024-09-23 09:14 | Emergency (ER) | payer BC, SELFPAY ==
[2024-09-23 09:14] VITALS: BP 149/92; PULSE 81; RESP 14; TEMP 36.1; O2SAT 97; BMI 38.9
--- NOTE | 2024-09-23 10:09 | EKG12_ITS ---
Test Reason : GENERAL Blood Pressure : */* mmHG Vent. Rate : 58 BPM Atrial Rate : 58 BPM P-R Int : 162 ms QRS Dur : 86 ms QT Int : 422 ms P-R-T Axes : 12 -18 9 degrees QTcB Int : 414 ms Sinus bradycardia Nonspecific T wave abnormality Abnormal ECG Confirmed by HEMAL MORFIN, RACHEL ([id number]), marketing editor IRIS ORELLANA ([id number]) on 09/25/2024 8:19:18 AM Referred By: Confirmed By: RACHEL RECIO MD
--- NOTE | 2024-09-23 10:10 | CT_ITS ---
PROCEDURE: ABDOMEN/PELVIS W IV CONT ONLY REASON FOR EXAM: 58-year-old female, right upper quadrant abdominal pain wrapping around to the right flank. TECHNIQUE: Abdomen and pelvis CT with intravenous contrast. No oral contrast. IV CONTRAST: Administered. COMPARISON: Abdominal ultrasound 09/19/2024, abdominal radiographs 09/15/2024. FINDINGS: Lung bases: Clear. The heart is normal in size. Liver: The liver is normal in size with scattered hypodensities, too small to characterize but likely cysts. The major portal veins are patent. No biliary ductal dilation. No radiopaque stones within the gallbladder. Spleen: Unremarkable. Pancreas: Unremarkable. Adrenals: Unremarkable. Kidneys: Tiny nonobstructing left upper pole renal calculus. No hydronephrosis. Bladder: The urinary bladder is distended and unremarkable. Reproductive Organs: Prior hysterectomy. Bowel: The bowel loops are normal in caliber. No ascites or pneumoperitoneum. Normal appendix. Lymph nodes: No suspicious lymph node enlargement. Vasculature: Major vascular structures are unremarkable. Bones: Mild thoracolumbar spondylosis. CT/Abdomen/Pelvis W IV Cont ONLY IMPRESSION: 1. No acute abdominopelvic finding. 2. Tiny nonobstructing left upper pole renal calculus. One or more dose reduction techniques were used (e.g., Automated exposure contr ol, adjustment of the mA and/or kV according to patient size, use of iterative reconstruction technique). Reading Location: [facility]
--- NOTE | 2024-09-23 10:10 | ED.VIS.GI ---
HPI HPI - GI History of Present Illness Chief Complaint: Abd Pain Detail of Chief Complaint: Abdominal pain Informant: patient Narrative Narrative: Patient presents with abdominal pain that started out 2 weeks ago. Initially intermittent and now more continuous. She has been seen by primary care physician's office and had lab work that was unremarkable. She also had an ultrasound last week that showed no gallstones or other abnormalities. Pain made worse by eating spicy or greasy foods. Pain radiates to her right shoulder and back. She denies nausea or vomiting. She denies fever. Currently rates her pain an 8 out of 10. She denies urinary symptoms although she chronically has some blood in her urine as she has history of interstitial cystitis. [facility] Medical History BPPV (benign paroxysmal positional vertigo) Fatigue Morbid obesity Anxiety and depression Preventative health care Screening for thyroid disorder Thrombosed external hemorrhoid Hemorrhoids Screening for intestinal cancer Vertigo Bradycardia Premature ventricular contractions Abnormal electrocardiogram Migraine GERD (gastroesophageal reflux disease) Hx of migraines History Abnormally Pap left breast needle biopsy Home Medications ?Medication ?Instructions ?Recorded ?Last Taken ?Type Depo-Medrol 40 mg/mL suspension 40 mg intra-articular ONCE #1 mL 02/20/19 Unknown Clinic for injection (methylprednisolone acetate) ondansetron HCl 4 mg tablet 4 mg PO .prn 09/25/20 Unknown History (Zofran) eletriptan 40 mg tablet 40 mg PO .PRN 11/13/21 Unknown History loratadine 10 mg tablet (Claritin) 10 mg PO DAILY 11/13/21 Unknown History meclizine 25 mg tablet 25 mg PO BID PRN dizziness #30 tabs 11/13/21 Unknown Rx rimegepant 75 mg disintegrating 75 mg PO ONCE PRN 11/13/21 Unknown History tablet (Nurtec ODT) topiramate 100 mg capsule,extended 100 mg PO DAILY 11/13/21 Unknown History release 24 hr (Trokendi XR) triamcinolone acetonide 0.1 % 1 applic topical BID #30 grams 03/14/22 Unknown Rx topical ointment coenzyme Q10 75 mg capsule (Ultra 200 mg PO DAILY 01/29/23 Unknown History CoQ10) duloxetine 60 mg capsule,delayed 60 mg PO QHS #90 caps 05/31/23 Unknown Rx release (Cymbalta) atogepant 60 mg tablet (Qulipta) 60 mg PO DAILY 03/23/24 Unknown History ondansetron HCl 4 mg tablet 4 mg PO Q8H PRN nausea and 06/20/24 Unknown Rx vomiting #7 tabs hydrocodone-acetaminophen 5-325mg 1 tab PO Q4H PRN PRN Pain 2 days 09/23/24 Unknown Rx 5mg-325mg #10 TABLETS omeprazole 40 mg capsule,delayed 40 mg PO DAILY #30 caps 09/23/24 Unknown Rx release ondansetron 4 mg disintegrating 4 mg PO Q8H PRN PRN Nausea #10 tabs 09/23/24 Unknown Rx tablet Allergy/AdvReac Type Severity Reaction Status Date / Time escitalopram (From Lexapro) AdvReac Intermediate Nausea Verified 09/23/24 09:15 sulfamethoxazole (From AdvReac Nausea Verified 09/23/24 09:15 Bactrim) trimethoprim (From Bactrim) AdvReac Nausea Verified 09/23/24 09:15 vancomycin AdvReac Rash Verified 09/23/24 09:15 venlafaxine (From Effexor) AdvReac Nausea Verified 09/23/24 09:15 Family History Sister Cancer Other Asthma Breast cancer Hypertension Thyroid disorder Surgical History History of melanoma excision H/O lateral meniscus repair of left knee H/O arthroscopy of left knee H/O basal cell carcinoma excision History of tonsillectomy and adenoidectomy H/O: H/O: hysterectomy Social History household members: spouse housing: house number of children: 2 current occupational status: retired current occupation: retired Smoking Status: Never smoker second hand exposure: No alcohol intake: never details: social substance use type: does not use what type of physical activity do you participate in: none seatbelt use: always do you feel safe at home: Yes 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 ROS ROS ED Review of Systems ROS Unobtainable: other Constitutional Constitutional ED: Reports lethargy; Denies chills, fever(s), sweats or weight loss Eyes Eyes: Denies blurry vision, change in vision or diplopia ENT ENT ED: Denies rhinorrhea or sore throat Cardiovascular Cardiovascular: Denies chest pain, orthopnea or racing heartbeat Respiratory/Chest Respiratory/Chest: Denies cough, dyspnea, dyspnea on exertion, orthopnea or sputum Gastrointestinal Gastrointestinal: Reports abdominal pain; Denies diarrhea, nausea or vomiting Genitourinary Genitourinary ED: Denies dysuria, hematuria or urinary frequency Musculoskeletal Musculoskeletal: Denies arthralgias, back pain, myalgias or neck pain Integumentary Denies abscess, Abrasions or rash Neurologic Neurologic: Denies headache(s) or weakness Psychiatric Psychiatric: Denies anxiety, depression or suicidal thoughts Endocrine Endocrinology: Denies polydipsia, polyphagia or polyuria Hematologic/Lymphatic Hematologic/Lymphatic: Denies easy bleeding, easy bruising or lymphadenopathy Allergic/Immunologic Allergic/Immunologic ED: Denies mouth swelling, tongue swelling or urticaria EXAM Physical Exam Const Vital Signs: 09/23/24 09:14 09/23/24 11:14 Temperature 97 F L Temperature Source Temporal Pulse Rate 81 77 Respiratory Rate 14 14 Blood Pressure 149/92 H Blood Pressure Mean 111 Pulse Ox 97 Oxygen Delivery Method Room Air Room Air Positive well nourished and well developed General Appearance ED: well developed and NAD HEENT Reports TM's clear and moist mucous membranes normocephalic and atraumatic; Negative for trauma or tenderness Tympanic Membrane ED: Yes TM's clear Eyes PERRL and EOMs intact bilaterally General Eye ED: Negative for pale conjunctiva or scleral icterus Neck no lymphadenopathy, supple and no JVD General: Negative for tenderness Chest Wall inspection of chest normal and palpation of chest normal Chest: Negative for tenderness Resp normal respiratory effort and clear to auscultation bilaterally Effort and Inspection: Negative for respiratory distress or pain with movement Auscultation: Negative for rhonchi, wheezes or diminished lung sounds Cardio regular rate, regular rhythm, S1 normal heart sound, S2 normal heart sound and no murmurs Peripheral Pulses: pulses 2+ throughout GI normal to inspection, nondistended, normoactive bowel sounds, soft to palpation, non-distended and no masses GI Narrative: Tenderness palpation over right upper quadrant with some guarding. She had a positive Cosme sign. There is no rebound, rigidity, or peritoneal signs. No mass palpated. Back/Spine no CVA tenderness and no thoracic nor lumbar tenderness Extremity normal to inspection General Extremety ED: Negative for edema General Extremity: Negative for edema Neuro oriented x3, CN's II-XII intact bilaterally, no sensory deficits noted and gait normal Sensorium / Orientation: awake, alert, oriented to person, oriented to place and oriented to time Motor Exam: strength 5/5 throughout and strength abnormal Psych mental status grossly normal Skin no rashes or lesions noted and no wounds MDM MDM MDM Narrative Medical decision making narrative: Patient presents with 2-week history of right upper quadrant pain radiating to her back. Pain worse with eating and nausea. Clinically she looks well. She does have tenderness over the right upper quadrant. In the differential would be gallbladder disease versus bowel disease or kidney stone or other abnormality. IV line established. CBC with differential obtained showed a white count of 5.0 with hemoglobin 13.7 and platelet count of 212. Chemistries unremarkable. LFTs were normal. Lipase was normal at 30. Urinalysis was normal. CT scan of the abdomen pelvis with IV contrast obtained was unremarkable. I did review her ultrasound results was performed recently of the right upper quadrant and this also was normal. This point etiology of her pain unclear. Will discuss case with general surgeon on-call to arrange outpatient follow-up. I can write her for some pain medication and antinausea medication. She may need further workup such as possibly HIDA scan or EGD to evaluate further. I did speak with Dr. Martini who asked that we order an outpatient HIDA scan and have patient follow-up with her office. I was also asked to start patient on omeprazole and discontinue the Pepcid. Lab Data Attestation: I reviewed the patient's lab results. Labs: Laboratory Results - last 24 hr 09/23/24 09/23/24 09:28 10:48 WBC 5.0 RBC 4.68 Hgb 13.7 Hct 41.6 MCV 88.9 MCH 29.3 MCHC 32.9 RDW Std Deviation 41.4 RDW Coeff of Gage 12.7 Plt Count 212 MPV 10.4 Immature Gran % (Auto) 0.400 Neut % (Auto) 56.1 Lymph % (Auto) 29.1 Floyd % (Auto) 8.1 Eos % (Auto) 5.1 H Baso % (Auto) 1.2 H Absolute Neuts (auto) 2.8 Absolute Lymphs (auto) 1.44 Nucleated RBC % 0 Sodium 141 Potassium 3.8 Chloride 112 H Carbon Dioxide 23.0 Anion Gap 6 BUN 19 H Creatinine 0.89 Estim Creat Clear Calc 94.42 Est GFR (MDRD) Af Amer 84 Est GFR (MDRD) Non-Af 69 BUN/Creatinine Ratio 21.3 H Glucose 91 Calcium 9.1 Total Bilirubin 0.90 AST 14 L ALT 15 Alkaline Phosphatase 103 Troponin I High Sens 5 Total Protein 7.4 Albumin 3.6 Globulin 3.8 Albumin/Globulin Ratio 0.9 Lipase 30 L Urine Color Yellow Urine Clarity Clear Urine pH 5.0 Ur Specific [place] 1.020 Urine Protein 15 H Urine Glucose (UA) Normal Urine Ketones Negative Urine Occult Blood 10 H Urine Nitrite Negative Urine Bilirubin Negative Urine Urobilinogen Normal Ur Leukocyte Esterase Negative Urine RBC 0 SEEN Urine WBC 0 SEEN Ur Squamous Epith Cells 0-5 SEEN Urine Bacteria 0 SEEN Urine Mucus 0 SEEN Radiography Diagnostic Testing: Clinical Impression(s) from Imaging Studies Abdomen/Pelvis CT 09/23/24 10:10 IMPRESSION: 1. No acute abdominopelvic finding. 2. Tiny nonobstructing left upper pole renal calculus. One or more dose reduction techniques were used (e.g., Automated exposure control, adjustment of the mA and/or kV according to patient size, use of iterative reconstruction technique). Reading Location: [facility] EKG Initial EKG: Attestation: I personally reviewed and interpreted this EKG as follows: Comments: Sinus rhythm with rate of [address] changes Discharge Plan Triage Chief Complaint: Abd Pain ED Provider: Gregor Keating Dx/Rx/DC Orders Clinical Impression: Abdominal pain, Biliary colic Instructions: ED Abdominal Pain Unkn Cause Fem Prescriptions: New omeprazole 40 mg capsule,delayed release(DR/EC) 40 mg PO DAILY Qty: 30 0RF hydrocodone-acetaminophen 5-325 mg tablet 1 tab PO Q4H PRN PRN (Reason: Pain) 2 Days Qty: 10 0RF ondansetron 4 mg tablet,disintegrating 4 mg PO Q8H PRN PRN (Reason: Nausea) Qty: 10 0RF No Action methylprednisolone acetate [Depo-Medrol] 40 mg/mL suspension 40 mg INTRAARTIC ONCE Qty: 1 0RF ondansetron HCl [Zofran] 4 mg tablet 4 mg PO .prn Ultra CoQ10 75 mg capsule 200 mg PO DAILY loratadine [Claritin] 10 mg tablet 10 mg PO DAILY Trokendi XR 100 mg capsule,extended release 24hr 100 mg PO DAILY Nurtec ODT 75 mg tablet,disintegrating 75 mg PO ONCE PRN Rx Instructions: as a single dose eletriptan 40 mg tablet 40 mg PO .PRN meclizine 25 mg tablet 25 mg PO BID PRN (Reason: dizziness) Qty: 30 1RF triamcinolone acetonide 0.1 % ointment 1 applic topical BID Qty: 30 0RF Rx Instructions: Apply to all affected areas BID x 14 days. Qulipta 60 mg tablet 60 mg PO DAILY ondansetron HCl 4 mg tablet 4 mg PO Q8H PRN (Reason: nausea and vomiting) Qty: 7 0RF duloxetine [Cymbalta] 60 mg capsule,delayed release(DR/EC) 60 mg PO QHS Qty: 90 3RF Other Ambulatory Orders: Hepatobilliary Img w/Pharm Int (Routine) Facility: [facility] - Location: [facility] Ordered By: Dr. Gregor Keating Primary Care Provider: Arnaldo Cantor Referrals: Arnaldo Cantor MD [Primary Care Provider] - Sirisha Martini MD [Med Staff - Active Staff] - 3-5 Days Print Language: Tamazight Disposition Disposition: Home, Self Care
[2024-09-23 10:17] LABS: Absolute Lymphocyte Count 1.44 X10^3/uL (0.83-4.51); Absolute Neutrophil Count 2.8 X10^3/uL (2.0-7.7); Basophil# 0.06 X10^3/uL; Basophil% 1.2 % (0-1); Eosinophil# 0.25 X10^3/uL; Eosinophils% 5.1 % (0-5); Hematocrit 41.6 % (37-47); Hemoglobin 13.7 g/dL (12.0-15.0); Lymphocyte # 1.44 X10^3/ul (0.83-4.51); Lymphocyte % 29.1 % (19-41); Mean Corp Hgb Conc 32.9 g/dL (32-36); Mean Corpuscular Hgb 29.3 pg (27.0-32.0); Mean Corpuscular Volume 88.9 fL (81-99); Mean Platelet Vol. 10.4 fl (6.2-12.0); Monocyte% 8.1 % (0-10); NRBC Flagged by Analyzer 0 % (0-5); Neutrophil # 2.78 X10^3/uL (2.7-7.7); Neutrophil % 56.1 % (47-70); Platelet Count 212 K/mm3 (150-450); RBC Distribution Width CV 12.7 % (11.6-14.6); RBC Distribution Width SD 41.4 fl (35.1-43.9); Red Blood Count 4.68 M/mm3 (4.2-5.4)
[2024-09-23 10:39] LABS: ALB/GLOB Ratio 0.9 RATIO (0.9-2.4); AST(SGOT) 14 U/L (15-37); Alanine Aminotransfer ALT/SGPT 15 U/L (13-56); Albumin, Serum 3.6 g/dL (3.2-5.0); Alkaline Phosphatase 103 U/L (45-117); Anion Gap 6 (5-15); BUN 19 mg/dL (7-18); BUN/Creat Ratio 21.3 RATIO (10-20); Calcium,Total 9.1 mg/dL (8.5-10.1); Chloride 112 mmol/L (98-107); Creatinine, Serum 0.89 mg/dL (0.55-1.02); EST Glomerular Filtration Rate 69 mL/min (>60); Est Glom Filt Rate - Afr Amer 84 mL/min (>60); Estimated Creatinine Clearance 94.42 ml/min; Globulin 3.8 g/dL (2.2-4.2); Glucose 91 mg/dL (74-106); Lipase 30 U/L (73-393); Potassium 3.8 mmol/L (3.5-5.1); Protein, Total 7.4 g/dL (6.4-8.2); Sodium Level 141 mmol/L (136-145); Troponin-I HS 5 pg/mL (3.0-54.0)
[2024-09-23 10:52] LABS: Bacteria 0 SEEN /hpf (None Seen); Mucous, Urine 0 SEEN /hpf (<or=2+); White Blood Cells 0 SEEN /hpf (0-5)
[2024-09-23 10:54] LABS: Color, Urine Yellow (Yellow); Glucose, Dipstick Normal (Normal); Ketone-Dipstick Negative (Negative); Leukocyte Esterase-Dipstick Negative /ul (Negative); Nitrite-Dipstick Negative (Negative); Occult Blood-Urine 10 /ul (Negative); Protein-Dipstick 15 mg/dl (Negative); Urine Bilirubin Dipstick Negative (Negative); Urine Clarity Clear (Clear); Urine Urobilinogen Normal (Normal)
[2024-09-23 10:58] LABS: Red Blood Cells-Urine 0 SEEN /hpf (0-5); Squamous Epithelial Cells - UA 0-5 SEEN /hpf (5-10)
[2024-09-23 11:14] VITALS: PULSE 77; RESP 14
[2024-09-23 12:31] VITALS: BP 149/92; PULSE 77; RESP 14; TEMP 36.1; O2SAT 97
== END 2024-09-23 12:39 | disposition home or self-care (01) ==
PROVIDERS: Emergency Provider Emergency Medicine; PCP Family Medicine; Visit Provider Emergency Medicine
DX: R10.11 Right upper quadrant pain (principal); K80.50 Calculus of bile duct without cholangitis or cholecystitis without obstruction; K21.9 Gastro-esophageal reflux disease without esophagitis; Z79.899 Other long term (current) drug therapy; F41.8 Other specified anxiety disorders; Z90.710 Acquired absence of both cervix and uterus
CPT/HCPCS: 74177; 80053; 81001; 83690; 84484; 85025; 93005; 99282; Q9967; A4216

== ENCOUNTER → 2024-09-28 | Outpatient (CLI) | payer BC, SELFPAY ==
--- NOTE | 2024-09-28 11:19 | NM_ITS ---
PROCEDURE: HEPATOBILLIARY IMG W/PHARM INT REASON FOR EXAM: Right upper quadrant pain. Pain radiates to the right shoulder. TECHNIQUE: Intravenous Choletec with planar imaging of the abdomen. 2.3 mcg Kinevac intravenously approximately 60 minutes after the radiopharmaceutical with additional anterior imaging and a region of interest drawn around the gallbladder to calculate a time-activity curve. RADIOPHARMACEUTICAL: 5.8 mCi of technetium labeled mebrofenin COMPARISON: None available. FINDINGS: There is good uptake of the radiopharmaceutical by the liver. Normal gallbladder visualization with the gallbladder identified by 15 minutes. Gallbladder Ejection Fraction: 0 % (Normal is >35%) NM/Hepatobilliary Img w/Pharm Int IMPRESSION: Abnormal gallbladder ejection fraction. The gallbladder is visualized within 15 minutes following the injection of radi opharmaceutical. Reading Location: [id number]
== END | disposition home or self-care (01) ==
PROVIDERS: PCP Family Medicine; Referring Provider Emergency Medicine; Visit Provider Emergency Medicine
DX: R10.11 Right upper quadrant pain (principal)
CPT/HCPCS: 78227; A9537; J2805

== ENCOUNTER 2024-10-12 07:52 | Day surgery (SDC) | payer BC, SELFPAY ==
--- NOTE | 2024-10-09 14:46 | PAT.ANE_ITS ---
Pre-Assessment Diagnosis/Proposed Procedure Planned Operative Procedure(s): (N/A) Laparoscopic, Cholecystectomy with IOC Anesthesia History Anesthesia History - strike planning applications: Anesthesia History - strike planning applications Hx Hospitalization No 10/09/24 14:21 Any Problems With Anesthesia No 10/09/24 14:21 Cholinesterase deficiency No 10/09/24 14:21 You/Your Family Experience No 10/09/24 14:21 fever (hyperthermia) with Relationship Recent Exposure to Contagious No 03/08/23 15:03 Disease Does patient have nerve No 10/09/24 14:21 stimulator Patient instructed to have device shut off --Does patient have Pacemaker or ICD? When Was Last Pacemaker Check QUESTION #4 FULL TEXT: You/Your Family Experience fever (hyperthermia) with Anesthesia Last Oral Intake Last Oral intake: Last Oral Intake NPO since Meds taken in AM with sips of water? Meds patient instructed to take am of surgery PONV PONV - strike planning applications: PONV - strike planning applications Female Yes 10/09/24 14:21 HX of Motion Sickness Yes 10/09/24 14:21 HX of N/V After Surgery Yes 10/09/24 14:21 Non-Smoker Yes 10/09/24 14:21 Duration of Surgery greater Yes 10/09/24 14:21 than 60 minutes Number of Risk Factors 5 10/09/24 14:21 PONV Score Severe Risk 10/09/24 14:21 Height & Weight Height & Weight: Anesthesia: Height & Weight Height 5 ft 8 in 10/05/24 14:30 Respiratory Assessment Respiratory Assessment - strike planning applications: Respiratory Tract Infection Hx - strike planning applications Hx Respiratory Tract Infection No 10/09/24 14:21 STOP Sleep Apnea STOP Sleep Apnea - strike planning applications: STOP Sleep Apnea - strike planning applications Hx Hypertension No 10/09/24 14:21 Hx Sleep Apnea No 10/09/24 14:21 CPAP BIPAP Do you snore loudly (louder No 10/09/24 14:21 than talking or can be heard Do you often feel tired/ No 10/09/24 14:21 fatigued/ sleepy during daytime? Has anyone observed you stop No 10/09/24 14:21 breathing during sleep? STOP Results Negative 10/09/24 14:21 QUESTION #5 FULL TEXT : Do you snore loudly (louder than talking or can be heard through closed doors)? 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 Specify any problems Hx of Preganancy in last 3 No 10/09/24 14:21 Months Nurse Filling Out Transfusion MGRIFFITH 10/09/24 14:21 & Questions: Date: 10/09/24 10/09/24 14:21 Time: 14:23 10/09/24 14:21 Patient unable to answer at this time (ie. confused, unrespo /Reproduction History /Reproductive History - strike planning applications: /Reproductive Hx- strike planning applications Hx Now Gestational Age (in weeks): EDC: Hx Hx Para Hx Section SAB No 12/06/23 15:29 PFSH Medical History (Updated 10/09/24 @ 14:30 by Joann Bowden) Wears glasses Rash Interstitial cystitis PONV (postoperative nausea and vomiting) Non-smoker History of Holter monitoring History of echocardiogram Cardiology follow-up encounter BPPV (benign paroxysmal positional vertigo) Fatigue Morbid obesity Anxiety and depression Preventative health care Screening for thyroid disorder Thrombosed external hemorrhoid Hemorrhoids Screening for intestinal cancer Vertigo Bradycardia Premature ventricular contractions Abnormal electrocardiogram Migraine GERD (gastroesophageal reflux disease) Hx of migraines History Abnormally Pap left breast needle biopsy Home Medications ?Medication ?Instructions ?Recorded ?Last Taken ?Type eletriptan 40 mg tablet 40 mg PO PRN migraine Unknown History meclizine 25 mg tablet 25 mg PO BID PRN dizziness # 30 tabs 11/13/21 Unknown Rx rimegepant 75 mg disintegrating 75 mg PO ONCE PRN migr clara headache 11/13/21 Unknown History tablet (Nurtec ODT) topiramate 100 mg capsule,extended 100 mg PO QHS migra ine 11/13/21 Unknown History release 24 hr (Trokendi XR) coenzyme Q10 75 mg capsule (Ultra 200 mg PO QHS preven tative for 01/29/23 Unknown History CoQ10) migraines duloxetine 60 mg capsule,delayed 60 mg PO QHS mood #90 caps 05/31/23 Unknown Rx release (Cymbalta) atogepant 60 mg tablet (Qulipta) 60 mg PO QHS migraine s 03/23/24 Unknown History ondansetron 4 mg disintegrating 4 mg PO Q8H PRN PRN Na usea #10 tabs 09/23/24 Unknown Rx tablet cetirizine 10 mg tablet (All Day 10 mg PO QHS allergy 10/09/24 Unknown History Allergy (cetirizine)) cholecalciferol (vitamin D3) 50 50 mcg PO QHS suppleme nt 10/09/24 Unknown History mcg (2,000 unit) capsule (Vitamin D3) lactobacillus combination no.4 3 3,000 mmu cells PO QH S probiotic 10/09/24 Unknown History billion cell capsule (Probiotic) supplement omeprazole 40 mg capsule,delayed 40 mg PO QHS GERD 10/31 Unknown History release triamcinolone acetonide 0.1 % 1 applic topical BID PRN rosacea 10/09/24 Unknown History topical ointment Allergy/AdvReac Type Severity Reaction Status Date / Time escitalopram (From Lexapro) AdvReac Intermediate Nausea Verified 10/09/24 14:11 sulfamethoxazole (From AdvReac Nausea Verified 10/09/24 14:11 Bactrim) trimethoprim (From Bactrim) AdvReac Nausea Verified 10/09/24 14:11 vancomycin AdvReac Rash Verified 10/05/24 14:31 venlafaxine (From Effexor) AdvReac Nausea Verified 10/09/24 14:11 Family History Sister Cancer Other Asthma Breast cancer Hypertension Thyroid disorder Surgical History (Updated 10/09/24 @ 14:21 by Joann Bowden) History of colonoscopy History of melanoma excision H/O lateral meniscus repair of left knee H/O arthroscopy of left knee H/O basal cell carcinoma excision History of tonsillectomy and adenoidectomy H/O: H/O: hysterectomy Social History household members: spouse housing: house number of children: 2 current occupational status: retired current occupation: retired Smoking Status: Never smoker second hand exposure: No alcohol intake: never details: social substance use type: does not use what type of physical activity do you participate in: none seatbelt use: always do you feel safe at home: Yes 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 PVCs. Denies any current symptoms or events. Continue to monitor for concerning symptoms. Holter monitor 03/28/2022 demonstrated average heart rate 58 bpm ventricular ectopy 0.3% Recommendation Anesthesia Recommendation Anesthesia recommendation: OPTIMIZED for anesthesia
[2024-10-12] VITALS (12 sets, daily range): BP systolic 113–136; BP diastolic 74–89; PULSE 55–75; RESP 12–18; TEMP 36–36.6; O2SAT 90–100; BMI 39.2
--- NOTE | 2024-10-12 | GALL_PTH ---
PATIENT: JESSICA MONDRAGON LOC: [facility] [place] U#:[id number] AGE/SX: 59/F ROOM: RE10/12/[address]: Dr. Sirisha Martini MD : [id number] BED: DIS: 10/12/2024 SPEC #: [id number] RECD: 10/12/24 13:53 STATUS: EMETERIO RECarlos #: [id number] ISIDRO: 10/12/24 00:[address]: Sirisha Martini DEPT: SURGICAL PATHOLOGY RECD BY: Manas Kwok ENTERED: 10/12/24 13:53 SP TYPE: LUCY BAUTISTA DR: Arnaldo Cantor MD Tissues: Gallbladder, NOS Procedures: Surgery Specimen Level III HEADER OPERATION: Robotic laparoscopic, cholecystectomy with IOC PRE-OP DIAGNOSIS: Biliary dyskinesia TISSUE SUBMITTED: Gallbladder MICROSCOPIC DIAGNOSIS Gallbladder, cholecystectomy: * No specific pathologic change. * Benign pericystic lymph node x1. MICROSCOPIC DESCRIPTION Slides are reviewed. GROSS DESCRIPTION Received in formalin labeled Jessica Mondragon and designated gallbladder is a yellow-doyle smooth intact gallbladder that measures 7.5 cm long by 3.1 cm in diameter. The mucosa is red-brown slightly granular. Sectioning shows a 0.2 cm wall thickness. There are no calculi within the lumen of the specimen or the specimen container. Manager Trainee sections of the gallbladder are submitted.JK. 10/12/2024 CPT:64357
[2024-10-12] MEDS: 0.9% Normal Saline (1000mL) 1,000 ML 15 ML IV (08:37)
[2024-10-12] MEDS: INDOCYANINE GREEN 3.75 MG in Syringe 1.5 ML 999 MG IV (08:37)
--- NOTE | 2024-10-12 09:09 | PRE.ANES_ITS ---
ASA Classification* ASA Classification ASA Classification: 3 Assessment & Plan Anesthesia* Anesthesia Assessment Anesthesia Assessment: Discussed sedation and/or anesthesia options, risks, benefits, and alternatives with patient/parents/legal guardian/POA. Questions invited. The patient/parents/legal guardian/POA seems to understand and agrees to proceed with anesthesia plan. Reviewed the physical assessment, medical history, allergy history and patient home medications list prior to surgery/procedure/anesthetic and documented any changes. Performed airway and anesthesia risk assessments. Anesthesia Type Anesthesia Type: General History Source History Obtained from:: Patient and Chart Anesthesia Focused Assessment* Temperature: 97 F Pulse Rate: 61 Blood Pressure: 122/80 Respiratory Rate: 16 Pulse Ox: 95 Oxygen Delivery Method: Room Air Airway Assessment Mouth opens: >3 cm Mallampati Score: II Teeth Condition: Caps/Crowns (Patient has several crowns. An implant. All tight.) Neck Range of motion (ROM): Full ROM Focused Labs Anesthesia Preop lab: CBC WBC 5.0 K/mm3 (4.4-11.0) 09/23/24 09:09/23/24 RBC 4.68 M/mm3 (4.2-5.4) 09/23/24 09:09/23/24 Hgb 13.7 g/dL (12.0-15.0) 09/23/24 09:09/23/24 Hct 41.6 % (37-47) 09/23/24 09:09/23/24 Plt Count 212 K/mm3 (150-450) 09/23/24 09:09/23/24 CHEMISTRY Potassium 3.8 mmol/L (3.5-5.1) 09/23/24 09:09/23/24 Sodium 141 mmol/L (136-145) 09/23/24 09:09/23/24 Magnesium 2.4 mg/dL (1.6-2.6) 02/13/21 11:45 02/13/21 BUN 19 mg/dL (7-18) H 09/23/24 09:09/23/24 Creatinine 0.89 mg/dL (0.55-1.02) 09/23/24:09/23/24 Glucose 91 mg/dL (74-106) 09/23/24:09/23/24 TSH 1.89 uIU/mL (0.358-3.74) 02/25/23 14:27 COAG Pre-Assessment Diagnosis/Proposed Procedure Planned Operative Procedure(s): (N/A) Laparoscopic, Cholecystectomy with IOC Anesthesia History Anesthesia History - occupational health specialist: Anesthesia History - occupational health specialist Hx Hospitalization No 10/09/24 14:21 Any Problems With Anesthesia No 10/09/24 14:21 Cholinesterase deficiency No 10/09/24 14:21 You/Your Family Experience No 10/09/24 14:21 fever (hyperthermia) with Relationship Recent Exposure to Contagious No 10/12/24 08:30 Disease Does patient have nerve No 10/09/24 14:21 stimulator Patient instructed to have device shut off --Does patient have Pacemaker No 10/12/24 08:30 or ICD? When Was Last Pacemaker Check QUESTION #4 FULL TEXT: You/Your Family Experience fever (hyperthermia) with Anesthesia Last Oral Intake Last Oral intake: Last Oral Intake NPO since 07:30 10/12/24 08:30 Meds taken in AM with sips of Yes 10/12/24 08:30 water? Meds patient instructed to see mar 10/12/24 08:30 take am of surgery Any additional information?: Yes Meds taken in AM with sips of water?: Yes PONV PONV - occupational health specialist: PONV - occupational health specialist Female Yes 10/09/24 14:21 HX of Motion Sickness Yes 10/09/24 14:21 HX of N/V After Surgery Yes 10/09/24 14:21 Non-Smoker Yes 10/09/24 14:21 Duration of Surgery greater Yes 10/09/24 14:21 than 60 minutes Number of Risk Factors 5 10/09/24 14:21 PONV Score Severe Risk 10/09/24 14:21 Height & Weight Height & Weight: Anesthesia: Height & Weight Height 5 ft 8 in 10/12/24 08:30 Weight: 117.027 kg 10/12/24 08:30 Body Mass Index (BMI) 39.2 10/12/24 08:30 Respiratory Assessment Respiratory Assessment - occupational health specialist: Respiratory Tract Infection Hx - occupational health specialist Hx Respiratory Tract Infection No 10/09/24 14:21 STOP Sleep Apnea STOP Sleep Apnea - occupational health specialist: STOP Sleep Apnea - occupational health specialist Hx Hypertension No 10/09/24 14:21 Hx Sleep Apnea No 10/09/24 14:21 CPAP BIPAP Do you snore loudly (louder No 10/09/24 14:21 than talking or can be heard Do you often feel tired/ No 10/09/24 14:21 fatigued/ sleepy during daytime? Has anyone observed you stop No 10/09/24 14:21 breathing during sleep? STOP Results Negative 10/09/24 14:21 QUESTION #5 FULL TEXT : Do you snore loudly (louder than talking or can be heard through closed doors)? Tobacco Use History Tobacco Use History - occupational health specialist: Tobacco Use History - occupational health specialist Tobacco Use Smoking Status Never smoker 10/09/24 14:21 Hx Tobacco Use No 10/09/24 14:21 Years Smoking Packs Smoked per Day Smoking Cessation Date was within the last 15 years Hx Smoking Cessation Date Hx Smoking Cessation Counseling Hematologic Medial History Hematologic Hx - occupational health specialist: Hematologic Medical Hx - manager nc Hx of Blood Transfusion No 10/09/24 14:21 Hx of Transfusion in last 3 No 10/09/24 14:21 Months Date of Last Transfusion (if within last 3 months) Ever experience any problems No 10/09/24 14:21 with transfusion(s)? Specify any problems Hx of Preganancy in last 3 No 10/09/24 14:21 Months Nurse Filling Out Transfusion MGRIFFITH 10/09/24 14:21 & Questions: Date: 10/09/24 10/09/24 14:21 Time: 14:23 10/09/24 14:21 Patient unable to answer at this time (ie. confused, unrespo /Reproduction History /Reproductive History - occupational health specialist: /Reproductive Hx- occupational health specialist Hx Now Gestational Age (in weeks): EDC: Hx Hx Para Hx Section SAB No 12/06/23 15:29 Active Medications Active Medications: Current Medications Generic Name Dose Route Start Last Admin Trade Name Freq PRN Reason Stop Dose Admin Cefazolin Sodium 2 gm/ N/A 20 mls @ 400 mls/hr 10/12/24 09:30 IV 10/12/24 09:32 PREOP ONE Sodium Chloride 1,000 mls @ 15 mls/hr 10/12/24 08:15 10/12/24 08:37 IV 10/17/24 21:34 15 mls/hr .Q48H SALUD Administration Protocol [facility] Medical History Wears glasses Rash Interstitial cystitis PONV (postoperative nausea and vomiting) Non-smoker History of Holter monitoring History of echocardiogram Cardiology follow-up encounter BPPV (benign paroxysmal positional vertigo) Fatigue Morbid obesity Anxiety and depression Preventative health care Screening for thyroid disorder Thrombosed external hemorrhoid Hemorrhoids Screening for intestinal cancer Vertigo Bradycardia Premature ventricular contractions Abnormal electrocardiogram Migraine GERD (gastroesophageal reflux disease) Hx of migraines History Abnormally Pap left breast needle biopsy Home Medications ?Medication ?Instructions ?Recorded ?Last Taken ?Type eletriptan 40 mg tablet 40 mg PO PRN migraine Unknown History meclizine 25 mg tablet 25 mg PO BID PRN dizziness # 30 tabs 11/13/21 Unknown Rx rimegepant 75 mg disintegrating 75 mg PO ONCE PRN migr clara headache 11/13/21 Unknown History tablet (Nurtec ODT) topiramate 100 mg capsule,extended 100 mg PO QHS migra ine 11/13/21 Unknown History release 24 hr (Trokendi XR) coenzyme Q10 75 mg capsule (Ultra 200 mg PO QHS preven tative for 01/29/23 Unknown History CoQ10) migraines duloxetine 60 mg capsule,delayed 60 mg PO QHS mood #90 caps 05/31/23 Unknown Rx release (Cymbalta) atogepant 60 mg tablet (Qulipta) 60 mg PO QHS migraine s 03/23/24 Unknown History ondansetron 4 mg disintegrating 4 mg PO Q8H PRN PRN Na usea #10 tabs 09/23/24 Unknown Rx tablet cetirizine 10 mg tablet (All Day 10 mg PO QHS allergy 10/09/24 Unknown History Allergy (cetirizine)) cholecalciferol (vitamin D3) 50 50 mcg PO QHS suppleme nt 10/09/24 Unknown History mcg (2,000 unit) capsule (Vitamin D3) lactobacillus combination no.4 3 3,000 mmu cells PO QH S probiotic 10/09/24 Unknown History billion cell capsule (Probiotic) supplement omeprazole 40 mg capsule,delayed 40 mg PO QHS GERD 10/3110/12/24 History release triamcinolone acetonide 0.1 % 1 applic topical BID PRN rosacea 10/09/24 Unknown History topical ointment Allergy/AdvReac Type Severity Reaction Status Date / Time escitalopram (From Lexapro) AdvReac Intermediate Nausea Verified 10/12/24 08:30 sulfamethoxazole (From AdvReac Nausea Verified 10/12/24 08:30 Bactrim) trimethoprim (From Bactrim) AdvReac Nausea Verified 10/12/24 08:30 vancomycin AdvReac Rash Verified 10/12/24 08:30 venlafaxine (From Effexor) AdvReac Nausea Verified 10/12/24 08:30 Family History Sister Cancer Other Asthma Breast cancer Hypertension Thyroid disorder Surgical History History of colonoscopy History of melanoma excision H/O lateral meniscus repair of left knee H/O arthroscopy of left knee H/O basal cell carcinoma excision History of tonsillectomy and adenoidectomy H/O: H/O: hysterectomy Social History household members: spouse housing: house number of children: 2 current occupational status: retired current occupation: retired Smoking Status: Never smoker second hand exposure: No alcohol intake: never details: social substance use type: does not use what type of physical activity do you participate in: none seatbelt use: always do you feel safe at home: Yes 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
--- NOTE | 2024-10-12 09:24 | PCM.HP.BLA ---
History and Physical Date of Admission: 10/12/24 Date of Service: 10/05/24 MR#: [id number] Acct: [id number] Name: JESSICA VENTURA Rep #: [id number] : 1965 Provider: Dr. Sirisha Martini MD Age/Sex: 59/F Location: [facility] Status: Signed Intake Vital Signs 09/23/2508:14 10/05/2513:30 Height 5 ft 8 in 5 ft 8 in Weight: 259 lb 6 oz BMI 39.4 BP 108/74 Blood Pressure Location Rt brachial Position Sitting Respiration 18 Pulse 68 Pulse Source Monitor Temp 97.6 F L Temp Source Temporal Pulse Oximetry (%) 99 Oxygen Delivery Method room air Intake Visit Reasons: Colonoscopy, Discuss gallbladder surgery Chief Complaint: colonoscopy, discuss gallbladder sx Is patient in pain?: Yes (RUQ ) Allergies escitalopram (From Lexapro) Adverse Reaction (Intermediate, Verified 10/05/24 14:31) Nauseasulfamethoxazole (From Bactrim) Adverse Reaction (Verified 10/05/24 14:31) Nauseatrimethoprim (From Bactrim) Adverse Reaction (Verified 10/05/24 14:31) Nauseavancomycin Adverse Reaction (Verified 10/05/24 14:31) Rashvenlafaxine (From Effexor) Adverse Reaction (Verified 10/05/24 14:31) Nausea Medications ?Medication ?Instructions ?Recorded ?Confirmed ?Type eletriptan 40 mg tablet 40 mg PO .PRN 11/13/21 10/05/24 History loratadine 10 mg tablet (Claritin) 10 mg PO DAILY 11/13/21 10/05/24 History meclizine 25 mg tablet 25 mg PO BID PRN dizziness #30 tabs 11/13/21 10/05/24 Rx rimegepant 75 mg disintegrating 75 mg PO ONCE PRN 11/13/21 10/05/24 History tablet (Nurtec ODT) topiramate 100 mg capsule,extended 100 mg PO DAILY 11/13/21 10/05/24 History release 24 hr (Trokendi XR) triamcinolone acetonide 0.1 % 1 applic topical BID #30 grams 03/14/22 10/05/24 Rx topical ointment coenzyme Q10 75 mg capsule (Ultra 200 mg PO DAILY 01/29/23 10/05/24 History CoQ10) duloxetine 60 mg capsule,delayed 60 mg PO QHS #90 caps 05/31/23 10/05/24 Rx release (Cymbalta) atogepant 60 mg tablet (Qulipta) 60 mg PO DAILY 03/23/24 10/05/24 History ondansetron 4 mg disintegrating 4 mg PO Q8H PRN PRN Nausea #10 tabs 09/23/24 10/05/24 Rx tablet omeprazole 40 mg capsule,delayed 40 mg PO DAILY #30 caps 10/05/24 10/05/24 Rx release PFSH Medical History (Updated 10/05/24 @ 15:[address] Sirisha Martini MD) BPPV (benign paroxysmal positional vertigo) Fatigue Morbid obesity Anxiety and depression Preventative health care Screening for thyroid disorder Thrombosed external hemorrhoid Hemorrhoids Screening for intestinal cancer Vertigo Bradycardia Premature ventricular contractions Abnormal electrocardiogram Migraine GERD (gastroesophageal reflux disease) Hx of migraines History Abnormally Pap left breast needle biopsy Surgical History History of melanoma excision H/O lateral meniscus repair of left knee H/O arthroscopy of left knee H/O basal cell carcinoma excision History of tonsillectomy and adenoidectomy H/O: H/O: hysterectomy Family History Sister CancerOther Asthma Breast cancer Hypertension Thyroid disorder Social History household members: spouse housing: house number of children: 2 current occupational status: retired current occupation: retired Smoking Status: Never smoker second hand exposure: No alcohol intake: never details: social substance use type: does not use what type of physical activity do you participate in: none seatbelt use: always do you feel safe at home: Yes 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 Patient states for the last 3 weeks she has had constant right upper quadrant shoulder discomfort. Prior to that she was having intermittent discomfort that was may be more muscular initially. Patient states she does get nausea after eating especially any fatty or greasy foods. Patient would occasionally also have nausea that would wake her up in middle night hours after eating. Patient did go to the ER and they did order the HIDA scan as the ultrasound not show any gallstones. Patient was started on omeprazole. Patient states the omeprazole did improve her reflux symptoms. Patient last colonoscopy was in [address] Torres was negative and she will be due this year. ROS General General: Yes fatigue; No weight change, appetite, colon cancer, breast cancer or weakness HEENT HEENT: No difficulty swallowing, eye injury, eye surgery, swollen glands or hoarseness Endo Endocrine: No thyroid disease, diabetes mellitus, thyroid cancer, Hair loss, heat intolerance or cold intolerance Skin Skin: No rash or changing moles Musc Musculoskeletal: No back problems, arthritis, rheumatoid arthritis, gout or joint pain Cardio Cardiovascular: No murmur, pacemaker, heart disease, atrial fibrillation, high blood pressure, heart attack, heart stent, palpitations, shortness of breat with exertion or chest pain Psych Psychiatric: Yes depression and anxiety; No hearing voices Resp Respiratory: No shortness of breath, No sleep apnea, No cough, No COPD, No asthma, No emphysema and No wheezing Gastro Gastrointestinal: Yes abdominal pain, Yes nausea or vomiting, Yes diarrhea, Yes constipation, No blood in stool, Yes acid reflux, Yes hemorrhoids, No ulcers, Yes gallbladder problem and No black,tarry stools [place] Hematologic: No blood thinners, No blood disorders, No bleeding, No anemia and No blood clots Neuro Neurologic: No numbness, No tingling and No weakness Exam Const General: cooperative, healthy appearing, comfortable and no acute distress [facility] Head: normocephalic and atraumatic Neck Neck: supple Resp Effort & Inspection: normal respiratory effort Cardio Rate: regular rate GI Inspection: non-distended Palpation: soft, no guarding, no hernias and tender in the epigastrum and in the RUQ; with no rebound tenderness Skin General: no rashes or lesions noted Neuro General: CN's II-XI intact bilaterally Extrem General: normal to inspection Psych Mental Status: mental status grossly normal Attitude: cooperative Assessment and Plan Assessment and Plan (1) Biliary dyskinesia: Status: Acute (2) Right upper quadrant abdominal pain: Status: Acute (3) GERD (gastroesophageal reflux disease): Status: Acute (4) Screening for colon cancer: Status: Acute Medications: Refilled omeprazole 40 mg PO DAILY 30 caps 5RF Plan Reviewed the anatomy with the patient and discussed the procedure: robotic cholecystectomy with possible cholangiograms, possible open. Review risks including but not limited to bleeding, infection, hernia, bile leak, retained gallstones requiring another procedure ERCP- Endoscopic Retrograde Cholangiopancreatography, injury to another organ (bile ducts, common bile duct, small bowel, etc.) and conversion to an open procedure. All questions were answered. Will have patient continue the omeprazole 40 mg p.o. daily-- will send additional refills. Discussed with patient that postoperatively we would schedule and talk more about the repeat colonoscopy as she is due. Patient is agreeable to plan. Sirisha Martini M.D. Pager: [phone] [facility] [address] [place] [address], [address] [place] [address] Office: [phone] Plan Details Goals & Barriers: Goals Decrease spasm/pain Decrease inflammation Coding Level of Care Code Off vis,new,level 3 Diagnoses Biliary dyskinesia K82.8 Right upper quadrant abdominal pain R10.11 GERD (gastroesophageal reflux disease) K21.9 Screening for colon cancer Z12.11 10/05/24 1175 <Electronically signed by Sirisha Martini MD> Date Sirisha Martini MD
[2024-10-12] MEDS: Cefazolin 2 GM in Syringe IV (10:16)
[2024-10-12] MEDS: Bupiv/Epi 0.25% 30 ML Vial (11:59)
--- NOTE | 2024-10-12 12:20 | OP.PCM_ITS ---
Operative Report (Standard) Operative Information Date of Procedure: 10/12/24 Pre-Operative Diagnosis: biliary dyskinesia, RUQ pain Post-Operative Diagnosis: same Surgery/Procedure Performed: robotic cholecystectomy multi share program coordinator: Yes Applications Engineer Manufacturing: Kojo Martin Tasks completed by assistant district attorney: Opening & closing Type of Anesthesia: General/Supplemental RN Documented Start/Stop Times: Operation Date: 10/12/24 09:30 Case Time Into Pre-Op 10/12/24 08:11 Out of Pre-Op 10/12/24 10:14 Anesthesia Start 10/12/24 10:16 Into Room 10/12/24 10:16 Procedure Start 10/12/24 10:34 Procedure End 10/12/24 12:07 Anesthesia End 10/12/24 12:16 Out of Room 10/12/24 12:16 Into Recovery 10/12/24 12:20 Out of Recovery 10/12/24 13:29 Into Phase II Recovery 10/12/24 13:31 Out of Phase II 10/12/24 16:12 Procedure Start Time: 10:34 Procedure Stop Time: 12:07 Select all DRAINS/GRAFTS/IMPLANTS that apply: None Special Medications: Ancef 2 g IV x 1 Estimated Blood Loss: 10 cc Specimen collected: Yes Description of specimen(s) removed: Gallbladder Description of surgery: Indications: this is a 59 year-old female who developed abdominal pain/nausea/vomiting and on workup was found to have biliary dyskinesia, with a normal common bile duct. Laparoscopic cholecystectomy was elected. Description procedure: The patient was placed on operating table in supine position. A timeout was completed verifying correct patient, procedure, site, position and special equipment prior to beginning procedure. General Anesthesia was induced. The abdomen was prepped and draped in usual sterile fashion. An incision was made in the natural skin line below the umbilicus. The fascia was elevated and incised. The peritoneum was elevated and incised. Entry into the peritoneum was confirmed visually and no bowel was noted in the vicinity of the incision. Quintana trocar was placed. The abdomen was insufflated with carbon dioxide to a pressure of 12-15 mmHg. Patient tolerated insufflation well. The laparoscope was then inserted and abdomen inspected. No injuries from initial trocar placement were noted. Additional trochars were then inserted in the following locations 8 mm trocar left upper quadrant and 2 more 8 mm trochars in right lower quadrant and left lower quadrant. The abdomen was inspected no abnormalities were found. The table is placed in reverse Trendelenburg position with the right side up. The adhesions between the gallbladder and omentum were taken down carefully. The dome of the gallbladder was grasped with atraumatic grasper passed through the lateral port and retracted over the dome of the liver. Infundibulum was then grasped with atraumatic grasper through the midclavicular port and retracted to the right lower quadrant. This maneuver exposed Calot's triangle. The peritoneum overlying the gallbladder infundibulum was then incised and cystic duct and artery identified and circumferentially dissected. ICG was used to visualize the cystic duct. The cystic duct and artery were then doubly clipped and divided close to the gallbladder. The gallbladder then dissected from its peritoneal attachments by electrocautery. Hemostasis was checked and the gallbladder was removed using the endoscopic retrieval bag through the umbilical port. The gallbladder is pas sed off table as specimen. The gallbladder fossa was irrigated with saline and hemostasis obtained. There is no evidence of bleeding from the gallbladder fossa or cystic artery leakage of bile from the cystic duct stump. Secondary trochars removed under direct vision. No bleeding was noted the trocar sites. The laparoscope was withdrawn and umbilical trocar removed. The abdomen was allowed to collapse. The fascia of the 12 mm trocar was closed with a [id number] 0 Vicryl suture. The skin was closed with sutures of 4-0 Monocryl and Steri-Strips. The patient was extubated. The patient tolerated procedure well and was taken to the postanesthesia care unit in stable condition. Surgical Findings: See operative report Complications Complications: No
--- NOTE | 2024-10-12 12:24 | DCINST_ITS ---
Discharge Instructions Diet Discharge Diet: Light diet - advance as tolerated Activity Discharge Activity: May Not Drive (while taking narcotic pain medications.) May shower in (days): 1 Lifting Restrictions: no lifting >20 lbs x 2 wks, no strenuous exercise for 4 wks Dressing / Incision Call your doctor if your incision/area has: Continuous Slow Oozing, Sudden Increased Bleeding, Increased Pain/ Swelling, Increased Redness, Foul Smelling Discharge and Swelling at the incision site Call your doctor if you observe: Fever of 101 or Higher Remove Dressing in: 2 days Cleanse incision/area with: Soap & Water Additional Dressing/Incision Instructions:: Steri-Strips will fall off in 7 to 10 days, if they do not fall off okay to remove after 10 days. Follow Up Care Please Follow Up With: Sirisha Martini MD When: Call the office for a follow-up appointment 2 weeks; after 5 PM and on the weekends call [phone] with any concerns. Test Results: Test results from this visit will be discussed in further detail at your follow- up appointment, if applicable. Discharge Plan Admission Attending Provider: Sirisha Martini Primary Care Provider: Arnaldo Cantor Instructions Print Language: Mongolian Discharge Orders/Prescriptions Prescriptions: New oxycodone 5 mg capsule 5 mg PO Q6H PRN (Reason: pain) 3 Days Qty: 10 0RF Continued Ultra CoQ10 75 mg capsule 200 mg PO QHS topiramate [Trokendi XR] 100 mg capsule,extended release 24hr 100 mg PO QHS Nurtec ODT 75 mg tablet,disintegrating 75 mg PO ONCE PRN (Reason: migraine headache) Rx Instructions: as a single dose eletriptan 40 mg tablet 40 mg PO PRN meclizine 25 mg tablet 25 mg PO BID PRN (Reason: dizziness) Qty: 30 1RF Qulipta 60 mg tablet 60 mg PO QHS ondansetron 4 mg tablet,disintegrating 4 mg PO Q8H PRN PRN (Reason: Nausea) Qty: 10 0RF cetirizine [All Day Allergy (cetirizine)] 10 mg tablet 10 mg PO QHS cholecalciferol (vitamin D3) [Vitamin D3] 50 mcg (2,000 unit) capsule 50 mcg PO QHS triamcinolone acetonide 0.1 % ointment 1 applic topical BID PRN (Reason: rosacea) Rx Instructions: Apply to all affected areas BID x 14 days. Probiotic 3 billion cell capsule 3,000 mmu cells PO QHS Rx Instructions: administer with a meal omeprazole 40 mg capsule,delayed release(DR/EC) 40 mg PO QHS duloxetine [Cymbalta] 60 mg capsule,delayed release(DR/EC) 60 mg PO QHS Qty: 90 3RF Referrals / Follow Up: Arnaldo Cantor MD [Primary Care Provider] - Disposition Disposition (needs filled in before D/C Order can be placed): Home, Self Care
--- NOTE | 2024-10-12 12:34 | PCM.POST.ANE ---
Anesthesia: Postop Eval I Current Vital Signs Temperature: 97.3 F Pulse Rate: 75 Blood Pressure: 131/74 Respiratory Rate: 16 Pulse Ox: 98 Oxygen Delivery Method: Venturi Mask Oxygen Flow Rate (L/min): 6 Assessment Airway patent: Yes Spontaneous unlabored respirations: Yes Mental status: Calm nausea: No Vomiting: No Anesthesia Complication: No Fluid Hydration Crystalloid volume administer (ml): 1,700 Total IV fluid infused: 1,700 Progress Note Anesthesia document: Postop Eval 1 completed: Yes
[2024-10-12] MEDS: Acetaminophen 500 MG Tablet 1000 MG PO (14:43)
[2024-10-12] MEDS: oxyCODONE 5 MG Tablet PO (14:44)
--- NOTE | 2024-10-12 18:27 | POSTOPAN2_ITS ---
Anesthesia Postop Eval I Sum Postop Eval Completion status Anesthesia document: Postop Eval 1 completed: Yes Anesthesia Postop Eval I Summary Anesthesia Postop Eval I Summary: Anesthesia Postop Eval I: Assessment Summary Airway patent Yes 10/12/24 12:35 [email or web address] Spontaneous unlabored Yes 10/12/24 12:35 [email or web address] respirations Mental status Calm 10/12/24 12:35 [email or web address] nausea No 10/12/24 12:35 ELECTRONICS [email or web address] Vomiting No 10/12/24 12:35 [email or web address] Anesthesia Postop Eval I: Fluid Summary Crystalloid volume administer 1,700 10/12/24 12:35 [email or web address] (ml) Colloids volume administered ( ml) Blood Product volume administered (ml) Total IV fluid infused 1,700 10/12/24 12:35 [email or web address] Anesthesia Postop Eval I: Summary Notes Anesthesia Complication No 10/12/24 12:35 [email or web address] Anesthesia Complication Comment: Post-operative progress note Anesthesia: Postop Eval II Evaluation Mental status: Awake and Calm Pain Level: 1 nausea: No Vomiting: No Complications Anesthesia Complication: No
--- NOTE | 2024-10-12 18:27 | PCM.POSTANE2 ---
Anesthesia Postop Eval I Sum Postop Eval Completion status Anesthesia document: Postop Eval 1 completed: Yes Anesthesia Postop Eval I Summary Anesthesia Postop Eval I Summary: Anesthesia Postop Eval I: Assessment Summary Airway patent Yes 10/12/24 12:35 [email or web address] [email or web address] Spontaneous unlabored Yes 10/12/24 12:35 UNDER [email or web address] respirations Mental status Calm 10/12/24 12:35 UNDER [email or web address] nausea No 10/12/24 12:35 UNDER [email or web address] Vomiting No 10/12/24 12:35 UNDER [email or web address] Anesthesia Postop Eval I: Fluid Summary Crystalloid volume administer 1,700 10/12/24 12:35 UNDER [email or web address] (ml) Colloids volume administered ( ml) Blood Product volume administered (ml) Total IV fluid infused 1,700 10/12/24 12:35 UNDER [email or web address] Anesthesia Postop Eval I: Summary Notes Anesthesia Complication No 10/12/24 12:35 UNDER [email or web address] Anesthesia Complication Comment: Post-operative progress note Anesthesia: Postop Eval II Evaluation Mental status: Awake and Calm Pain Level: 1 nausea: No Vomiting: No Complications Anesthesia Complication: No
== END 2024-10-12 16:12 | disposition home or self-care (01) ==
LOC: SDC 07:55 → AC 07:55
PROVIDERS: PCP Family Medicine; Referring Provider Surgery; Visit Provider Surgery
PROC: 0FT44ZZ Resection of Gallbladder, Percutaneous Endoscopic Approach (ICD-10-PCS; CPT 47562; principal; 2024-10-12 09:15)
DX: K82.8 Other specified diseases of gallbladder (principal); K21.9 Gastro-esophageal reflux disease without esophagitis; Z79.899 Other long term (current) drug therapy
CPT/HCPCS: 47562; 00790; 88304; 93005; J2405

== ENCOUNTER → 2024-12-06 | Outpatient (CLI) | payer BC, SELFPAY ==
--- NOTE | 2024-12-06 07:52 | BI_ITS ---
EXAM: SCRN MAMM (CAD)W/JAYNE BILAT 12/06/2024 CLINICAL HISTORY: F, Age 59 y/o , SCREEN FOR BREAST CANCER TECHNIQUE: Bilateral screening digital breast tomosynthesis with 2D and 3D images. Computer aided detection. COMPARISON: Prior exam(s) dated 12/06/2023, 12/03/2022, 11/26/2021. FINDINGS: TISSUE DENSITY: The breast tissue is composed of scattered area of fibroglandular density. Bilateral Breast Mammographic Findings: No significant masses, calcifications or other abnormalities are identified. BI/SCRN MAMM (CAD)W/JAYNE BILAT IMPRESSION: Right Breast: BIRADS 1 NEGATIVE. Left Breast: BIRADS 1 NEGATIVE. OVERALL FINAL ASSESSMENT: BIRADS 1 NEGATIVE. RECOMMENDATION: Routine annual follow-up in 1 Year A letter with findings and recommendations will be mailed to the patient. Reading Location: [id number]
== END | disposition home or self-care (01) ==
LOC: OPBI 07:51
PROVIDERS: PCP Family Medicine; Referring Provider Obstetrics & Gynecology; Visit Provider Obstetrics & Gynecology
DX: Z12.31 Encounter for screening mammogram for malignant neoplasm of breast (principal)
CPT/HCPCS: 77063; 77067

== ENCOUNTER 2024-12-25 08:03 | Day surgery (SDC) | payer BC, SELFPAY ==
--- NOTE | 2024-12-21 12:13 | PAT.ANESEVAL ---
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 When Was Last Pacemaker Check QUESTION #4 FULL TEXT: You/Your Family Experience fever (hyperthermia) with Anesthesia Last Oral Intake Last Oral intake: Last Oral Intake NPO since Meds taken in AM with sips of water? Meds patient instructed to take am of surgery PONV PONV - java j2ee application developer: PONV - java j2ee application developer Female Yes 12/21/24 10:23 HX of Motion Sickness No 12/21/24 10:23 HX of N/V After Surgery Yes 12/21/24 10:23 Non-Smoker Yes 12/21/24 10:23 Duration of Surgery greater No 12/21/24 10:23 than 60 minutes Number of Risk Factors 3 12/21/24 10:23 PONV Score Moderate Risk 12/21/24 10:23 Height & Weight Height & Weight: Anesthesia: Height & Weight Height 5 ft 8 in 10/12/24 08:30 Respiratory Assessment Respiratory Assessment - java j2ee application developer: Respiratory Tract Infection Hx - java j2ee application developer Hx Respiratory Tract Infection No 12/21/24 10:23 STOP Sleep Apnea STOP Sleep Apnea - java j2ee application developer: STOP Sleep Apnea - java j2ee application developer Hx Hypertension No 12/21/24 10:23 Hx Sleep Apnea No 12/21/24 10:23 CPAP BIPAP Do you snore loudly (louder No 12/21/24 10:23 than talking or can be heard Do you often feel tired/ No 12/21/24 10:23 fatigued/ sleepy during daytime? Has anyone observed you stop No 12/21/24 10:23 breathing during sleep? STOP Results Negative 12/21/24 10:23 QUESTION #5 FULL TEXT : Do you snore loudly (louder than talking or can be heard through closed doors)? 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 Specify any problems Hx of Preganancy in last 3 No 12/21/24 10:23 Months Nurse Filling Out Transfusion VLEHMAN 12/21/24 10:23 & Questions: Date: 12/21/24 12/21/24 10:23 Time: :12/21/24 10:23 Patient unable to answer at this time (ie. confused, unrespo /Reproduction History /Reproductive History - java j2ee application developer: /Reproductive Hx- java j2ee application developer Hx Now Gestational Age (in weeks): EDC: Hx Hx Para Hx Section SAB No 12/06/23 15:29 PFSH Medical History Wears glasses Rash Interstitial cystitis PONV (postoperative nausea and vomiting) Non-smoker History of Holter monitoring History of echocardiogram Cardiology follow-up encounter BPPV (benign paroxysmal positional vertigo) Fatigue Morbid obesity Anxiety and depression Preventative health care Screening for thyroid disorder Thrombosed external hemorrhoid Hemorrhoids Screening for intestinal cancer Vertigo Bradycardia Premature ventricular contractions Abnormal electrocardiogram Migraine GERD (gastroesophageal reflux disease) Hx of migraines History Abnormally Pap left breast needle biopsy Home Medications ?Medication ?Instructions ?Recorded ?Last Taken ?Type eletriptan 40 mg tablet 40 mg PO PRN migraine 11/13/21 Unknown History meclizine 25 mg tablet 25 mg PO BID PRN dizziness #30 tabs 11/13/21 Unknown Rx rimegepant 75 mg disintegrating 75 mg PO ONCE PRN migraine headache 11/13/21 Unknown History tablet (Nurtec ODT) topiramate 100 mg capsule,extended 100 mg PO QHS migraine 11/13/21 Unknown History release 24 hr (Trokendi XR) coenzyme Q10 75 mg capsule (Ultra 200 mg PO QHS preventative for 01/29/23 Unknown History CoQ10) migraines duloxetine 60 mg capsule,delayed 60 mg PO QHS mood #90 caps 05/31/23 Unknown Rx release (Cymbalta) atogepant 60 mg tablet (Qulipta) 60 mg PO QHS migraines 03/23/24 Unknown History ondansetron 4 mg disintegrating 4 mg PO Q8H PRN PRN Nausea #10 tabs 09/23/24 Unknown Rx tablet cetirizine 10 mg tablet (All Day 10 mg PO QHS allergy 10/09/24 Unknown History Allergy (cetirizine)) cholecalciferol (vitamin D3) 50 50 mcg PO QHS supplement 10/09/24 Unknown History mcg (2,000 unit) capsule (Vitamin D3) lactobacillus combination no.4 3 3,000 mmu cells PO QHS probiotic 10/09/24 Unknown History billion cell capsule (Probiotic) supplement omeprazole 40 mg capsule,delayed 40 mg PO QHS GERD 10/09/24 10/12/24 History release triamcinolone acetonide 0.1 % 1 applic topical BID PRN rosacea 10/09/24 Unknown History topical ointment estradiol 0.01% (0.1 mg/gram) 1 g vaginal MOFR 12/21/24 Unknown History vaginal cream (Estrace) Allergy/AdvReac Type Severity Reaction Status Date / Time escitalopram (From Lexapro) AdvReac Intermediate Nausea Verified 12/21/24 10:18 sulfamethoxazole (From AdvReac Nausea Verified 12/21/24 10:18 Bactrim) trimethoprim (From Bactrim) AdvReac Nausea Verified 12/21/24 10:18 vancomycin AdvReac Rash Verified 12/21/24 10:18 venlafaxine (From Effexor) AdvReac Nausea Verified 12/21/24 10:18 Family History Sister Cancer Other Asthma Breast cancer Hypertension Thyroid disorder Surgical History S/P cholecystectomy History of colonoscopy History of melanoma excision H/O lateral meniscus repair of left knee H/O arthroscopy of left knee H/O basal cell carcinoma excision History of tonsillectomy and adenoidectomy H/O: H/O: hysterectomy Social History household members: spouse housing: house number of children: 2 current occupational status: retired current occupation: retired Smoking Status: Never smoker second hand exposure: No alcohol intake: never details: social substance use type: does not use what type of physical activity do you participate in: none seatbelt use: always do you feel safe at home: Yes 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 Normal diastology for age. No regional wall motion abnormalities noted.) Addt'l Information Additional Findings: EKG NSR Recommendation Anesthesia Recommendation Anesthesia recommendation: OPTIMIZED for anesthesia
[2024-12-25] VITALS (8 sets, daily range): BP systolic 103–122; BP diastolic 58–89; PULSE 16–76; RESP 16–68; TEMP 36.1–36.9; O2SAT 16–98; BMI 37.8
[2024-12-25] MEDS: Lactated Ringers 1,000 ML 15 ML IV (08:41)
--- NOTE | 2024-12-25 09:16 | PCM.PRE.AN2 ---
ASA Classification* ASA Classification ASA Classification: 2 Assessment & Plan Anesthesia* Anesthesia Assessment Anesthesia Assessment: Discussed sedation and/or anesthesia options, risks, benefits, and alternatives with patient/parents/legal guardian/POA. Questions invited. The patient/parents/legal guardian/POA seems to understand and agrees to proceed with anesthesia plan. Reviewed the physical assessment, medical history, allergy history and patient home medications list prior to surgery/procedure/anesthetic and documented any changes. Performed airway and anesthesia risk assessments. Anesthesia Type Anesthesia Type: MAC History Source History Obtained from:: Patient and Chart Anesthesia Focused Assessment* Temperature: 98 F Pulse Rate: 74 Blood Pressure: 120/82 Respiratory Rate: 16 Pulse Ox: 97 Oxygen Delivery Method: Room Air Airway Assessment Mouth opens: >3 cm Mallampati Score: II Teeth Condition: Intact Neck Range of motion (ROM): Full ROM Focused Labs Anesthesia Preop lab: CBC WBC 5.0 K/mm3 (4.4-11.0) 09/23/24 09:09/23/24 RBC 4.68 M/mm3 (4.2-5.4) 09/23/24 09:09/23/24 Hgb 13.7 g/dL (12.0-15.0) 09/23/24 09:09/23/24 Hct 41.6 % (37-47) 09/23/24 09:09/23/24 Plt Count 212 K/mm3 (150-450) 09/23/24 09:09/23/24 CHEMISTRY Potassium 3.8 mmol/L (3.5-5.1) 09/23/24 09:09/23/24 Sodium 141 mmol/L (136-145) 09/23/24 09:09/23/24 Magnesium 2.4 mg/dL (1.6-2.6) 02/13/21 11:45 02/13/21 BUN 19 mg/dL (7-18) H 09/23/24:09/23/24 Creatinine 0.89 mg/dL (0.55-1.02) 09/23/24 09:09/23/24 Glucose 91 mg/dL (74-106) 09/23/24 09:09/23/24 TSH 1.89 uIU/mL (0.358-3.74) 02/25/23 14:27 02/25/23 COAG Pre-Assessment Diagnosis/Proposed Procedure Planned Operative Procedure(s): COLONOSCOPY Anesthesia History 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 When Was Last Pacemaker Check QUESTION #4 FULL TEXT: You/Your Family Experience fever (hyperthermia) with Anesthesia Any additional information?: No Last Oral Intake Last Oral intake: Last Oral Intake NPO since 22:00 12/25/24 08:28 Meds taken in AM with sips of No 12/25/24 08:28 water? 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 Female Yes 12/21/24 10:23 HX of Motion Sickness No 12/21/24 10:23 HX of N/V After Surgery Yes 12/21/24 10:23 Non-Smoker Yes 12/21/24 10:23 Duration of Surgery greater No 12/21/24 10:23 than 60 minutes Number of Risk Factors 3 12/21/24 10:23 PONV Score Moderate Risk 12/21/24 10:23 Any additional information?: No Height & Weight Height & Weight: Anesthesia: Height & Weight Height 5 ft 8 in 12/25/24 08:28 Weight: 113 kg 12/25/24 08:28 Body Mass Index (BMI) 37.8 12/25/24 08:28 Respiratory Assessment Respiratory Assessment - wool washing machine operator: Respiratory Tract Infection Hx - wool washing machine operator Hx Respiratory Tract Infection No 12/21/24 10:23 Any additional information?: No STOP Sleep Apnea STOP Sleep Apnea - wool washing machine operator: STOP Sleep Apnea - wool washing machine operator Hx Hypertension No 12/21/24 10:23 Hx Sleep Apnea No 12/21/24 10:23 CPAP BIPAP Do you snore loudly (louder No 12/21/24 10:23 than talking or can be heard Do you often feel tired/ No 12/21/24 10:23 fatigued/ sleepy during daytime? Has anyone observed you stop No 12/21/24 10:23 breathing during sleep? STOP Results Negative 12/21/24 10:23 QUESTION #5 FULL TEXT : Do you snore loudly (louder than talking or can be heard through closed doors)? 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 Specify any problems Hx of Preganancy in last 3 No 12/21/24 10:23 Months Nurse Filling Out Transfusion VLEHMAN 12/21/24 10:23 & Questions: Date: 12/21/24 12/21/24 10:23 Time: 10:12/21/24 10:23 Patient unable to answer at this time (ie. 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: /Reproductive Hx- wool washing machine operator Hx Now Gestational Age (in weeks): EDC: Hx Hx Para Hx Section SAB No 12/06/23 15:29 Any additional information?: No Active Medications Active Medications: Current Medications Generic Name Dose Route Start Last Admin Trade Name Freq PRN Reason Stop Dose Admin Lactated Ringer's 1,000 mls @ 15 mls/hr 12/25/24 08:15 12/25/24 08:41 IV 15 mls/hr .Q48H SALUD Administration PFSH Medical History Wears glasses Rash Interstitial cystitis PONV (postoperative nausea and vomiting) Non-smoker History of Holter monitoring History of echocardiogram Cardiology follow-up encounter BPPV (benign paroxysmal positional vertigo) Fatigue Morbid obesity Anxiety and depression Preventative health care Screening for thyroid disorder Thrombosed external hemorrhoid Hemorrhoids Screening for intestinal cancer Vertigo Bradycardia Premature ventricular contractions Abnormal electrocardiogram Migraine GERD (gastroesophageal reflux disease) Hx of migraines History Abnormally Pap left breast needle biopsy Home Medications ?Medication ?Instructions ?Recorded ?Last Taken ?Type eletriptan 40 mg tablet 40 mg PO PRN migraine 11/13/21 Unknown History meclizine 25 mg tablet 25 mg PO BID PRN dizziness #30 tabs 11/13/21 Unknown Rx rimegepant 75 mg disintegrating 75 mg PO ONCE PRN migraine headache 11/13/21 Unknown History tablet (Nurtec ODT) topiramate 100 mg capsule,extended 100 mg PO QHS migraine 11/13/21 Unknown History release 24 hr (Trokendi XR) coenzyme Q10 75 mg capsule (Ultra 200 mg PO QHS preventative for 01/29/23 Unknown History CoQ10) migraines duloxetine 60 mg capsule,delayed 60 mg PO QHS mood #90 caps 05/31/23 Unknown Rx release (Cymbalta) atogepant 60 mg tablet (Qulipta) 60 mg PO QHS migraines 03/23/24 Unknown History ondansetron 4 mg disintegrating 4 mg PO Q8H PRN PRN Nausea #10 tabs 09/23/24 Unknown Rx tablet cetirizine 10 mg tablet (All Day 10 mg PO QHS allergy 10/09/24 Unknown History Allergy (cetirizine)) cholecalciferol (vitamin D3) 50 50 mcg PO QHS supplement 10/09/24 Unknown History mcg (2,000 unit) capsule (Vitamin D3) lactobacillus combination no.4 3 3,000 mmu cells PO QHS probiotic 10/09/24 Unknown History billion cell capsule (Probiotic) supplement omeprazole 40 mg capsule,delayed 40 mg PO QHS GERD 10/09/24 10/12/24 History release triamcinolone acetonide 0.1 % 1 applic topical BID PRN rosacea 10/09/24 Unknown History topical ointment estradiol 0.01% (0.1 mg/gram) 1 g vaginal MOFR 12/21/24 Unknown History vaginal cream (Estrace) Allergy/AdvReac Type Severity Reaction Status Date / Time escitalopram (From Lexapro) AdvReac Intermediate Nausea Verified 12/25/24 08:23 sulfamethoxazole (From AdvReac Nausea Verified 12/25/24 08:23 Bactrim) trimethoprim (From Bactrim) AdvReac Nausea Verified 12/25/24 08:23 vancomycin AdvReac Rash Verified 12/25/24 08:23 venlafaxine (From Effexor) AdvReac Nausea Verified 12/25/24 08:23 Family History Sister Cancer Other Asthma Breast cancer Hypertension Thyroid disorder Surgical History S/P cholecystectomy History of colonoscopy History of melanoma excision H/O lateral meniscus repair of left knee H/O arthroscopy of left knee H/O basal cell carcinoma excision History of tonsillectomy and adenoidectomy H/O: H/O: hysterectomy Social History household members: spouse housing: house number of children: 2 current occupational status: retired current occupation: retired Smoking Status: Never smoker second hand exposure: No alcohol intake: never details: social substance use type: does not use what type of physical activity do you participate in: none seatbelt use: always do you feel safe at home: Yes 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
--- NOTE | 2024-12-25 09:45 | H&P.OPEN ---
HPI - General General Date of Service: 12/25/24 HPI Narrative JESSICA VENTURA, is a 59 F who presents for screening colonoscopy. Patient's last colonoscopy was over [address] Torres. Patient denies any changes since previous office visit. 10/27/24 office visit HPI HPI: 59-year-old female presents status post robotic cholecystectomy. Patient is doing well tolerating diet states she only has occasional abdominal pain which does resolve. Patient states her previous right upper quadrant pain that was constant has resolved since surgery. Patient is also due for colonoscopy last colonoscopy was well over 10 years ago negative per patient by Dr. Torres. Patient denies any family history of colon cancer other than her paternal grandmother and she does not know if her father ever had a colonoscopy. Patient has bowel movements pretty much daily denies any blood. [facility] Medical History Wears glasses Rash Interstitial cystitis PONV (postoperative nausea and vomiting) Non-smoker History of Holter monitoring History of echocardiogram Cardiology follow-up encounter BPPV (benign paroxysmal positional vertigo) Fatigue Morbid obesity Anxiety and depression Preventative health care Screening for thyroid disorder Thrombosed external hemorrhoid Hemorrhoids Screening for intestinal cancer Vertigo Bradycardia Premature ventricular contractions Abnormal electrocardiogram Migraine GERD (gastroesophageal reflux disease) Hx of migraines History Abnormally Pap left breast needle biopsy Home Medications ?Medication ?Instructions ?Recorded ?Last Taken ?Type eletriptan 40 mg tablet 40 mg PO PRN migraine 11/13/21 Unknown History meclizine 25 mg tablet 25 mg PO BID PRN dizziness #30 tabs 11/13/21 Unknown Rx rimegepant 75 mg disintegrating 75 mg PO ONCE PRN migraine headache 11/13/21 Unknown History tablet (Nurtec ODT) topiramate 100 mg capsule,extended 100 mg PO QHS migraine 11/13/21 Unknown History release 24 hr (Trokendi XR) coenzyme Q10 75 mg capsule (Ultra 200 mg PO QHS preventative for 01/29/23 Unknown History CoQ10) migraines duloxetine 60 mg capsule,delayed 60 mg PO QHS mood #90 caps 05/31/23 Unknown Rx release (Cymbalta) atogepant 60 mg tablet (Qulipta) 60 mg PO QHS migraines 03/23/24 Unknown History ondansetron 4 mg disintegrating 4 mg PO Q8H PRN PRN Nausea #10 tabs 09/23/24 Unknown Rx tablet cetirizine 10 mg tablet (All Day 10 mg PO QHS allergy 10/09/24 Unknown History Allergy (cetirizine)) cholecalciferol (vitamin D3) 50 50 mcg PO QHS supplement 10/09/24 Unknown History mcg (2,000 unit) capsule (Vitamin D3) lactobacillus combination no.4 3 3,000 mmu cells PO QHS probiotic 10/09/24 Unknown History billion cell capsule (Probiotic) supplement omeprazole 40 mg capsule,delayed 40 mg PO QHS GERD 10/09/24 10/12/24 History release triamcinolone acetonide 0.1 % 1 applic topical BID PRN rosacea 10/09/24 Unknown History topical ointment estradiol 0.01% (0.1 mg/gram) 1 g vaginal MOFR 12/21/24 Unknown History vaginal cream (Estrace) Allergy/AdvReac Type Severity Reaction Status Date / Time escitalopram (From Lexapro) AdvReac Intermediate Nausea Verified 12/25/24 08:23 sulfamethoxazole (From AdvReac Nausea Verified 12/25/24 08:23 Bactrim) trimethoprim (From Bactrim) AdvReac Nausea Verified 12/25/24 08:23 vancomycin AdvReac Rash Verified 12/25/24 08:23 venlafaxine (From Effexor) AdvReac Nausea Verified 12/25/24 08:23 Family History Sister Cancer Other Asthma Breast cancer Hypertension Thyroid disorder Surgical History S/P cholecystectomy History of colonoscopy History of melanoma excision H/O lateral meniscus repair of left knee H/O arthroscopy of left knee H/O basal cell carcinoma excision History of tonsillectomy and adenoidectomy H/O: H/O: hysterectomy Social History household members: spouse housing: house number of children: 2 current occupational status: retired current occupation: retired Smoking Status: Never smoker second hand exposure: No alcohol intake: never details: social substance use type: does not use what type of physical activity do you participate in: none seatbelt use: always do you feel safe at home: Yes 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 Past Medical/Surgical History Planned Operation Planned Operative Procedure(s): COLONOSCOPY S.O.S: No Previous Hospitalizations/Surgeries HX Hospitalizations: No HX of Surgeries: D AND C 94 C SECTION X2, 1995 AND 1999 HYSTERECTOMY 2013 Any Problems With Anesthesia: No You/Your Family Experience Fever (Hyperthermia) With Anes: No Cholinesterase deficiency: No Cardiovascular Hx Chest Pain within Last 2 months: No Hx of Irregular Heartbeat and/or Afib: No Hx Heart Attack: No Hx Congestive Heart Failure: No Hx Rheumatic Fever: No Hx Hypertension: No Hx Internal Defibrillator: No Hx Pacemaker: No Hx Cardiac Catheterization: No Hx Cardiac Surgery/Stents/Etc.: No Hx Stress Test: No (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 NO LONGER TAKES) Hx Gastrointestinal Disorders: No Hx Gastrointestinal Bleed: No Hx Ulcer: No Hx Hiatal Hernia: No Difficulty Chewing/Swallowing: No Special diet followed at home: No Hx Unplanned Weight Loss of 20#: No HX Unplanned Weight Gain of 20#: No Neurological Hx Seizures: No HX Syncope/Blackout Spells/Unconsciousness: No Hx Transient Ischemic Attacks (TIA): No Hx Multiple Sclerosis: No Hx Parkinson's Disease: No Hx Head/Neck Injury: No Hx Headaches: Yes Hx Back Injury/Pain: No Recent Onset of Speech Difficulty: No Restless Legs: No Does patient have nerve stimulator: No Blood Disorder Hx Leukemia: No Bleeding Tendencies: No Hx Deep Vein Thrombosis: No Hx High Cholesterol: No Blood Transmitted Disease: No Hx Hepatitis: No Hx Cirrhosis: No Hx Anemia: No Hx Blood Disorders: No Reproduction Is Patient Lactating: No Hx Hysterectomy: Yes Hx Tubal Ligation: No Are You Post Menopause: No Genitourinary Hx Renal Disease: No Musculoskeletal Hx Arthritis: No Hx Rheumatoid Arthritis: No Hx Gout: No Recent Onset of an Orthopedic Problem: No Endocrine Hx Diabetes: No Thyroid Disease: No Hx Steroid Therapy: No Psycho/Social Hx Substance Use: No Hx Alcohol Use: No Hx Anxiety: Yes Hx Depression: Yes Mental Illness: No Hx Dementia: No Miscellaneous Hx Cancer: No Recent Exposure to Contagious Disease: No Hx of C-Diff: No Any Loose Teeth: No Allergies escitalopram (From Lexapro) Adverse Reaction (Intermediate, Verified 12/25/24 08:23) Nausea sulfamethoxazole (From Bactrim) Adverse Reaction (Verified 12/25/24 08:23) Nausea trimethoprim (From Bactrim) Adverse Reaction (Verified 12/25/24 08:23) Nausea vancomycin Adverse Reaction (Verified 12/25/24 08:23) Rash DANO SYNDROME venlafaxine (From Effexor) Adverse Reaction (Verified 12/25/24 08:23) Nausea Discharge Is Pt Admitted From a Prison, or a Fdc: No Who Could Help: FAMILY After D/C, Where Do you Plan to Go: Return Home Vital Signs Vital Signs Vital Signs: 12/25/24 08:28 12/25/24 08:28 12/25/24 09:20 Temperature 98 F 98 F Temperature Source Temporal Pulse Rate 74 74 Respiratory Rate 16 16 Respiratory Pattern Normal Blood Pressure 120/82 H 120/82 H Blood Pressure Mean 94 Blood Pressure Source Monitor Blood Pressure Position Semi-Fowlers Blood Pressure Location Left Forearm Pulse Ox 97 97 Oxygen Delivery Method Room Air Room Air Weight Weight: 249 lb 1.957 oz Body Mass Index (BMI) 37.8 Physical Exam Const alert, oriented x3 and no apparent distress HEENT normocephalic and head/scalp atraumatic Resp normal respiratory effort Cardio regular rate GI soft to palpation and non-tender; Negative for non-distended Palpation: Negative for guarding Extremity no clubbing, cyanosis or edema Skin no rashes or lesions noted Neuro CN's II-XII intact bilaterally Psych mental status grossly normal Assessment & Plan Assessment/Plan (1) Screening for colon cancer: Surgery Risks - Colonoscopy I discussed with the patient the risks of the procedure: Yes Risks Include but are not Limited To: Risks include but are not limited to: Bleeding, perforation requiring further surgery, inability to complete colonoscopy requiring barium enema.
--- NOTE | 2024-12-25 11:36 | PCM.POST.ANE ---
Anesthesia: Postop Eval I Current Vital Signs Temperature: 97 F Pulse Rate: 60 Blood Pressure: 122/89 Respiratory Rate: 16 Pulse Ox: 98 Oxygen Delivery Method: Room Air Assessment Airway patent: Yes Spontaneous unlabored respirations: Yes Mental status: Awake and Calm nausea: No Vomiting: No Anesthesia Complication: No Fluid Hydration Crystalloid volume administer (ml): 300 Total IV fluid infused: 300 Progress Note Anesthesia document: Postop Eval 1 completed: Yes
--- NOTE | 2024-12-25 11:40 | OP.COLON_ITS ---
Patient Name: Bridgette Mondragon Procedure Date: 12/25/2024 11:10 AM Date of : 1965 Age: 59 Procedure: Colonoscopy Indications: Screening for colorectal malignant neoplasm Providers: Sirisha Martini MD Referring MD: Arnaldo Cantor Md Medicines: Monitored Anesthesia Care Patient Profile: This is a 59 year old female. Last Colonoscopy: more than 10 years ago. Complications: No immediate complications. Procedure: Pre-Anesthesia Assessment: - Prior to the procedure, a History and Physical was performed, and patient medications and allergies were reviewed. The patient's tolerance of previous anesthesia was also reviewed. The risks and benefits of the procedure and the sedation options and risks were discussed with the patient. All questions were answered, and informed consent was obtained. Prior Anticoagulants: The patient has taken no anticoagulant or antiplatelet agents. ASA Grade Assessment: Per anesthesia. After reviewing the risks and benefits, the patient was deemed in satisfactory condition to undergo the procedure. After I obtained informed consent, the scope was passed under direct vision. Throughout the procedure, the patient's blood pressure, pulse, and oxygen saturations were monitored continuously. The pediatric colonoscope was introduced through the anus and advanced to the cecum, identified by the appendiceal orifice, ileocecal valve and palpation. The colonoscopy was technically difficult and complex due to a tortuous colon. The patient tolerated the procedure well. The quality of the bowel preparation was good. Scope In: 11:17:16 AM Scope Withdrawal Time 0 hours 8 minutes 18 seconds Scope Out: 11:35:42 AM Total Procedure Duration Time 0 hours 18 minutes 26 seconds Findings: The perianal and digital rectal examinations were normal. The entire examined colon appeared normal on direct and retroflexion views. Impression: - The entire examined colon is normal on direct and retroflexion views. - No specimens collected. Recommendation: - Discharge patient to home. - Resume previous diet. - Continue present medications. - Repeat colonoscopy in 10 years for screening purposes. Procedure Code(s): --- Professional --- G0121, PT, Colorectal cancer screening; colonoscopy on individual not meeting criteria for high risk Diagnosis Code(s): --- Professional --- Z12.11, Encounter for screening for malignant neoplasm of colon CPT copyright 2021 [employer]. All rights reserved. The codes documented in this report are preliminary and upon lay out worker review may be revised to meet current compliance requirements. MD Sirisha Lewis MD 12/25/2024 11:40:32 AM This report has been signed electronically. Number of Addenda: 0 Note Initiated On: 12/25/2024 11:10 AM
--- NOTE | 2024-12-25 11:41 | OP.CCLET_ITS ---
12/25/2024 Arnaldo Cantor Md Re : Colonoscopy procedure for Bridgette Mondragon Dear Devaughn This procedure was performed on Wednesday, December 25, 2024. My impressions and recommendations are as follows: Impressions : - The entire examined colon is normal on direct and retroflexion views. - No specimens collected. Recommendations : - Discharge patient to home. - Resume previous diet. - Continue present medications. - Repeat colonoscopy in 10 years for screening purposes. My findings are described in the full procedure note, which is enclosed. If I can be of further assistance, please feel free to contact me at Doctor phone number(s): , Work: . Sincerely, MD Sirisha Lewis MD 12/25/2024 11:40:32 AM This report has been signed electronically.
--- NOTE | 2024-12-25 11:53 | POSTOPAN2_ITS ---
Anesthesia Postop Eval I Sum Postop Eval Completion status Anesthesia document: Postop Eval 1 completed: Yes Anesthesia Postop Eval I Summary Anesthesia Postop Eval I Summary: Anesthesia Postop Eval I: Assessment Summary Airway patent Yes 12/25/24 11:37 UI UX WEB [email or web address] Spontaneous unlabored Yes 12/25/24 11:37 UI UX WEB [email or web address] respirations Mental status Awake,Calm 12/25/24 11:37 UI UX WEB [email or web address] nausea No 12/25/24 11:37 UI UX WEB [email or web address].SOBR Vomiting No 12/25/24 11:37 UI UX WEB [email or web address] Anesthesia Postop Eval I: Fluid Summary Crystalloid volume administer 300 12/25/24 11:37 UI UX WEB [email or web address] (ml) Colloids volume administered ( ml) Blood Product volume administered (ml) Total IV fluid infused 300 12/25/24 11:37 UI UX WEB [email or web address] Anesthesia Postop Eval I: Summary Notes Anesthesia Complication No 12/25/24 11:37 UI UX WEB [email or web address] Anesthesia Complication Comment: Post-operative progress note Anesthesia: Postop Eval II Evaluation Mental status: Awake Pain Level: 0 nausea: No Vomiting: No
--- NOTE | 2024-12-25 11:53 | PCM.POSTANE2 ---
Anesthesia Postop Eval I Sum Postop Eval Completion status Anesthesia document: Postop Eval 1 completed: Yes Anesthesia Postop Eval I Summary Anesthesia Postop Eval I Summary: Anesthesia Postop Eval I: Assessment Summary Airway patent Yes 12/25/24 11:37 BUSINESS [email or web address].SOBR Spontaneous unlabored Yes 12/25/24 11:37 BUSINESS CONSULTANT.SOBR respirations Mental status Awake,Calm 12/25/24 11:37 BUSINESS CONSULTANT.SOBR nausea No 12/25/24 11:37 BUSINESS CONSULTANT.SOBR Vomiting No 12/25/24 11:37 BUSINESS CONSULTANT.SOBR Anesthesia Postop Eval I: Fluid Summary Crystalloid volume administer 300 12/25/24 11:37 BUSINESS CONSULTANT.SOBR (ml) Colloids volume administered ( ml) Blood Product volume administered (ml) Total IV fluid infused 300 12/25/24 11:37 BUSINESS CONSULTANT.SOBR Anesthesia Postop Eval I: Summary Notes Anesthesia Complication No 12/25/24 11:37 BUSINESS [email or web address].SOBR Anesthesia Complication Comment: Post-operative progress note Anesthesia: Postop Eval II Evaluation Mental status: Awake Pain Level: 0 nausea: No Vomiting: No
== END 2024-12-25 12:28 | disposition home or self-care (01) ==
LOC: EN 08:03 → AC 08:04
PROVIDERS: PCP Family Medicine; Referring Provider Family Medicine; Visit Provider Surgery
PROC: 0DJD8ZZ Inspection of Lower Intestinal Tract, Via Natural or Artificial Opening Endoscopic (ICD-10-PCS; CPT 45378; principal; 2024-12-25 09:25)
DX: Z12.11 Encounter for screening for malignant neoplasm of colon (principal); Z90.49 Acquired absence of other specified parts of digestive tract; Z90.710 Acquired absence of both cervix and uterus; F41.8 Other specified anxiety disorders; Z79.899 Other long term (current) drug therapy; K21.9 Gastro-esophageal reflux disease without esophagitis
CPT/HCPCS: 45378

== ENCOUNTER → 2025-01-03 | Outpatient (CLI) | payer BC, SELFPAY ==
--- NOTE | 2025-01-03 14:48 | US_ITS ---
PROCEDURE: THYROID, 01/03/2025 REASON FOR EXAM: THYROID NODULE TECHNIQUE: Grayscale and color Doppler imaging of the thyroid was performed. COMPARISON: 08/26/2020 ; note that images only are available for review, the report is not available at the time of the dictation. FINDINGS: Right lobe measures 5.3 x 1.9 x 1.8cm. Essentially homogeneous background echotexture. No abnormal vascularity. Nodules as below: *Midgland, 3 x 3 x 2 mm, solid, hypoechoic, TI-RADS 4. This was not seen previously. Left lobe measures 5.7 x 2.0 x 1.5 cm. Essentially homogeneous background echotexture. No abnormal vascularity. Nodules as below: *Midgland, 19 x 12 x 8 mm, solid, heterogeneously hypoechoic, macrocalcification, TI-RADS 4. Previously more isoechoic and 16 x 8 x 10 mm. Isthmus measures 4 mm in thickness. Other: Nonenlarged morphologically normal LEFT cervical noted lateral to the thyroid measures 12 x 4 x 8 mm. US/Thyroid IMPRESSION: 1. Assessment is TI-RADS 4. A 19 mm nodule on the LEFT meets criteria for FNA which is recommended per the below. 2. Normal size gland with otherwise homogeneous background echotexture. No abn ormal vascularity. 3. Nonenlarged morphologically normal LEFT cervical node, nonspecific and poten tially reactive in the absence of known malignancy. Correlate with medical history and follow-up as indicated. Management recommendations for TI-RADS 4 findings: FNA if = 1.5 cm; Follow if = 1 cm at 1, 2, 3, and 5 years. Enlargment is defined as ?20% increase in at least two nodule dimensions, with a minimal increase of 2 mm or ?50% or greater increase in volume. Recommendations per ACR Thyroid Imaging, Reporting and Data System (TI-RADS): Inocencia li Paper of the ACR TI-RADS Committee, 2017 ([email or web address]) Reading Location: [id number]
== END | disposition home or self-care (01) ==
LOC: US 14:42
PROVIDERS: PCP Family Medicine; Referring Provider Obstetrics & Gynecology; Visit Provider Obstetrics & Gynecology
DX: E04.1 Nontoxic single thyroid nodule (principal)
CPT/HCPCS: 76536

== ENCOUNTER → 2025-01-26 | Outpatient (CLI) | payer BC, SELFPAY ==
--- NOTE | 2025-01-26 13:00 | FLU_PTH ---
PATIENT: JESSICA VENTURA LOC: [facility] U#:[id number] AGE/SX: 59/F ROOM: RE01/26/[address]: Dr. Edgar Tomas MD : 1965 BED: DIS: 01/26/2025 SPEC #: [id number] RECD: 01/26/25 13:30 STATUS: EMETERIO THERESA #: [id number] ISIDRO: 01/26/25 13:[address]: Edgar Tomas DEPT: CYTOLOGY RECD BY: Abel Zuñiga ENTERED: 01/26/25 14:11 SP TYPE: Fluid OTHR DR: Arnaldo Cantor MD Tissues: A - Thyroid gland, NOS Procedures: Special Stain Group II Surgery Specimen Level IV Cytospin Fluid HEADER OPERATION: Fine needle aspiration of left thyroid nodule PRE-OP DIAGNOSIS: Left thyroid nodule TISSUE SUBMITTED: A- Left thyroid nodule for cytology DIAGNOSIS CYTOLOGY A. Thyroid, left, nodule, FNA (cytospin, smear x4): * Atypical cells of undetermined significance (TBS III). COMMENT Afirma testing will be submitted. CYTOLOGY STUDY Slides are reviewed. CYTOLOGY GROSS A. Received is 30 ml of red-cloudy cytolyt with particles with 2 DQ and 2 PAP labeled with the patient's name and and designated per the requisition as Left thyroid nodule. Submitted for cytology and cytospin. 01/26/2025 CPT: 81524 ADDENDUM ADDENDUM ADDENDUM ADDENDUM ADDENDUM ADDENDUM ADDENDUM ADDENDUM ADDENDUM ADDENDUM 03/23/2025 09:49 ADDENDUM 03/23/2025 09:49 ADDENDUM 03/23/2025 09:49 ADDENDUM 03/23/2025 09:49 ADDENDUM 03/23/2025 09:49 AFIRMA RESULTS REPORT RESULTS INTERPRETATION: The result of this 1.9 cm [place] III nodule A is Afirma [facility] benign, which suggests a low risk of cancer of approximately 4%. Treatment like a cytologically benign nodule may be appropriate, including clinical correlation. Afirma XA is not performed on [facility] Benign nodules. TERT promoter region analysis is not performed on [facility] Benign nodules. Please see complete report in e-chart or EMR
[2025-01-26 16:41] LABS: Free T3 2.2 pg/mL (2.18-3.98)
== END | disposition home or self-care (01) ==
PROVIDERS: PCP Family Medicine; Referring Provider Surgery; Visit Provider Surgery
DX: E04.1 Nontoxic single thyroid nodule (principal)
CPT/HCPCS: 36415; 84439; 84443; 84481; 88108; 88305; 88313

== ENCOUNTER 2025-04-16 15:54 | Outpatient (RCR) | payer SELFPAY | END 2025-04-16 19:00 | disposition home or self-care (01) | LOC: PT 15:54 | PROVIDERS: PCP Family Medicine | DX: H81.10 Benign paroxysmal vertigo, unspecified ear (principal) ==

== ENCOUNTER → 2025-06-08 | Outpatient (CLI) | payer BC, SELFPAY | END | disposition home or self-care (01) | LOC: MTRAD 13:30 | PROVIDERS: PCP Family Medicine; Referring Provider Chiropractor; Visit Provider Chiropractor | DX: R51.9 Headache, unspecified (principal); M99.01 Segmental and somatic dysfunction of cervical region | CPT/HCPCS: 72040 ==